=== PATIENT | female | born 1990 | race Caucasian/White ===

== ENCOUNTER 2020-07-28 08:30 | Inpatient (IN) ==
[2020-07-28] MEDS ORDERED: PENICILLIN G POTASSIUM 6 MU in DEXTROSE 5% 250 ML IV STA (09:52)
[2020-07-28] MEDS ORDERED: OXYTOCIN 30 UNITS/500 ML BAG IV PRN (09:52)
--- NOTE | 2020-07-28 10:09 | Progress Note ---
Date of Service July 28, 2020 Assessment & Plan Admission and Anticipated Discharge Date Admission Date: July 28, 2020 Subjective Induction for GDMA2 on insulin reviewed PNC with pt FHR; CAT1 VE; Ft/thick/post Bedside sono; VT discussed and reviewed indcution with pt and spouse Cytotec PO to start Results & Data ([facility]) Vital Signs (Past 12 Hours) Vital Signs Pulse BP 07/28/20 09:55 93 H 117/68
[2020-07-28 10:25] LABS: Hematocrit (blood only) 35.5 % (37-47); Hemoglobin 12.3 g/dL (12.0-16.0); Mean Corpuscular Hemoglobin 29.9 pg (25-34); Mean Corpuscular Hgb Conc 34.6 g/dL (32-36); Mean Corpuscular Volume 86.4 fL (80-100); Platelet Count 198 K/uL (130-400); RDW Coefficient of Variation 13.4 % (11.5-14.5); Red Blood Count 4.11 M/uL (4.2-5.4); White Blood Count 11.07 K/uL (4.8-10.8)
[2020-07-28] MEDS ORDERED: PHARMACY GLYCEMIC MGMT CONSULT SCH (10:29)
[2020-07-28] MEDS ORDERED: D5W AND LACTATED RINGERS 1,000 ML IV SCH (10:30)
[2020-07-28] MEDS: LACTATED RINGER'S 1,000 ML IV SCH (10:30)
[2020-07-28 10:49] LABS: Alanine Aminotransferase 16 U/L (12-78); Albumin Level 2.6 gm/dl (3.4-5.0); BUN Creatinine Ratio 11.6 (10-20); Blood Urea Nitrogen 7 mg/dl (7-18); Calcium 9.1 mg/dl (8.5-10.1); Carbon Dioxide 19 mmol/L (21-32); Chloride 111 mmol/L (98-107); Est GFR (Non-African American) 125.1; Glucose 129 mg/dl (70-99); Potassium 3.6 mmol/L (3.5-5.1); Sodium 139 mmol/L (136-145)
[2020-07-28 10:52] LABS: Albumin Globulin Ratio 0.7 (0.9-2); Alkaline Phosphatase 143 U/L (45-117); Aspartate Aminotransferase 12 U/L (15-37); Bilirubin,Total 0.2 mg/dl (0.2-1); Globulin 3.9 gm/dl (2.5-4.0); Total Protein 6.5 gm/dl (6.4-8.2)
[2020-07-28] MEDS ORDERED: GLUCOSE 40% GEL 15 GM TUBE PO PRN (11:00)
[2020-07-28] MEDS ORDERED: GLUCOSE 10 TABS/TUBE PO PRN (11:00)
[2020-07-28] MEDS ORDERED: GLUCAGON FOR INJ 1 MG VIAL SQ PRN (11:00)
[2020-07-28] MEDS ORDERED: DEXTROSE 50% 50 ML SYRINGE IV PRN (11:00)
[2020-07-28] MEDS ORDERED: CARBOHYDRATES FOR HYPOGLYCEMIA PO PRN (11:00)
--- NOTE | 2020-07-28 11:11 | Pharmacy Report ---
Pharmacy Glycemic Short Note 2 - Date of Service July 28, 2020 - Glycemic Short BSG Results (Last 24 hours): 07/28/20 10:13 Glucose 129 H OUTPATIENT ANTIDIABETIC REGIMEN: * NPH 10 units HS ASSESSMENT: * 30 year old 39 weeks admitted for induction, gestational DM on insulin during * Patient had pancakes for breakfast, blood sugar 1 hour after 129mg/dl, Suzanna RN instructed to treat per protocol and then Q4H * Will also place NPH on scale at HS * Patient on clear liquid diet and PO hydration at this time PLAN FOR INPATIENT GLYCEMIC CONTROL: * Basal insulin * NPH 10 units SQ HS for BSG > 120mg/dl * Bolus insulin * NovoLog per scale Q4hrs * Goal Range: Low 70 mg/dL - High 120 mg/dL * BSG 120 or less - 0 units * BSG 121-140 - 1 unit * BSG 141-160 - 2 units * BSG 161-180 - 3 units * BSG 181-200 - 4 units * BSG > 200 - 4 units and call pharmacist
[2020-07-28] MEDS: INSULIN ASPART 100 UNITS/ML 3 ML PEN SC SCH ×3 (11:20→19:09)
[2020-07-28] MEDS: miSOPROStoL 50 MCG TAB PO SCH ×4 (11:28→23:05)
[2020-07-28] MEDS ORDERED: DINOPROSTONE 10 MG INSERT PV ONE (20:50)
[2020-07-28] MEDS: NovoLIN-N (NPH) PER UNIT CHARGE SQ SCH (21:30)
--- NOTE | 2020-07-28 21:36 | Progress Note ---
Date of Service July 28, 2020 Assessment & Plan Admission and Anticipated Discharge Date Admission Date: July 28, 2020 Subjective Pt doing well NST CAT1 ctx 4 mins , Mild intensity VE; ft/50/-3 BS reviewed Cervidil placed in vagina Results & Data ([facility]) Vital Signs (Past 12 Hours) Vital Signs Temp Pulse Resp BP Pulse Ox 07/28/20 19:23 36.6 C 18 07/28/20 18:49 36.8 C 70 18 122/68 07/28/20 14:51 36.4 C L 71 18 118/62 07/28/20 14:50 71 118/62 07/28/20 12:29 36.7 C 77 18 116/60 07/28/20 11:41 82 95 07/28/20 11:36 80 95 07/28/20 11:31 91 H 96 07/28/20 11:26 76 96 07/28/20 11:21 82 96 07/28/20 11:16 80 96 07/28/20 11:11 86 96 07/28/20 11:06 80 95 07/28/20 11:01 81 95 07/28/20 10:56 86 95 07/28/20 10:51 91 H 94 07/28/20 10:46 97 H 95 07/28/20 10:44 36.7 C 96 H 18 95 07/28/20 10:41 96 H 95 07/28/20 10:32 107 H 119/77 07/28/20 10:31 219 H 94 07/28/20 10:26 113 H 93 07/28/20 10:24 117 H 94 07/28/20 10:21 116 H 95 07/28/20 10:17 105 H 92 07/28/20 10:16 102 H 95 07/28/20 10:12 106 H 127/79 07/28/20 10:11 183 H 95 07/28/20 09:55 93 H 117/68
[2020-07-29] MEDS: INSULIN ASPART 100 UNITS/ML 3 ML PEN SC SCH ×5 (03:11→18:10)
[2020-07-29] MEDS: miSOPROStoL 50 MCG TAB PO SCH ×6 (03:17→21:45)
--- NOTE | 2020-07-29 11:12 | Obstetrical Progress Note ---
Date of Service July 29, 2020 Assessment & Plan Admission and Anticipated Discharge Date Admission Date: July 28, 2020 Physical Exam Genitourinary: Manual OB Exam: + cervical dilation fingertip, + cervical effacement 50% and + station high OB Exam Monitor Tracing: + external FHT monitor used, + external uterine monitor used, + category I and + normal FHT variability Will start Cytotec 50 mcg for further ripening of cervix Results & Data ([facility]) Vital Signs (Past 12 Hours) Vital Signs Temp Pulse Resp BP 07/29/20 11:08 79 124/75 07/29/20 07:10 36.8 C 20 07/29/20 06:57 77 127/57 L 07/29/20 03:11 36.7 C 18
[2020-07-29] MEDS ORDERED: Nursing to Pharmacy Communication SCH (11:45)
[2020-07-29] MEDS: NovoLIN-N (NPH) PER UNIT CHARGE SQ SCH (21:12)
[2020-07-30] MEDS: INSULIN ASPART 100 UNITS/ML 3 ML PEN SC SCH ×4 (00:02→18:35)
[2020-07-30] MEDS: miSOPROStoL 50 MCG TAB PO SCH ×5 (01:35→17:58)
[2020-07-30] MEDS ORDERED: OXYTOCIN 30 UNITS/500 ML BAG IV PRN (09:01)
[2020-07-30] MEDS ORDERED: BUTORPHANOL TARTRATE 1 MG/ML VIAL IV PRN (09:01)
[2020-07-30] MEDS ORDERED: PENICILLIN G POTASSIUM 6 MU in DEXTROSE 5% 250 ML IV STA (09:09)
--- NOTE | 2020-07-30 09:15 | History & Physical Report ---
Date of Service July 30, 2020 Assessment & Plan (1) Gestational diabetes requiring insulin: 30-year-old G1, P0 at 39 weeks and 2 days of gestation, with GDMA2, on insulin, induction of labor since July 28, cervical ripening with Cervidil and multiple dose of Cytotec. Vital signs stable afebrile. heart rate reassuring. Cervix is still not favorable and presenting part is high, estimated weight is 4099 g. Discussed option with continuing with cervical ripening with Avalos bulb and Pi tocin and she agreed. The HPI. Avalos bulb is placed with no difficulty. GBS is positive, start statin now Stadol for pain and an epidural for pain when patient desires. All questions were answered. (2) Elective induction of labor planned: Admission and Anticipated Discharge Date Admission Date: July 28, 2020 History of Present Illness Primary Care Provider: Goip Medina MD Patient is a 30-year-old G1, P0 at 39 weeks and 2 days of gestation who was admitted on July 28, 2020 for induction of labor at term due to history of gestational diabetes, on insulin. She received 2 doses of oral Cytotec and then intravaginal Cervidil on the day of admission. Cervidil was removed yesterday morning and continued with oral Cytotec. She denies contractions, leakage of fluid or vaginal bleeding. She was having contractions last night but and then they stopped and she was able to sleep. She has been feeling good movements. Her has been complicated by 1) GDMA2, on insulin for the last 2 weeks of . Finger stick glucose levels have been within normal limits. Estimated weight was 3700 g on July 20 percentile. Today we performed a bedside ultrasound and it is 4099 g. Discussed the limitation of ultrasound which can be up to 10% false rate. Discussed the risk of shoulder dystocia being higher with larger babies and gestational diabetes. Discussed the risk to the infant with possible neck injury, nerve injury hypoxia, asphyxia. Discussed ACOG recommendations of trial of labor if estimated weight is less than 4500 g. Patient understands all and likes to proceed with trial of labor and vaginal . 2) Obesity 3) GBS+ Allergies Allergy/AdvReac Type Severity Reaction Status Date / Time codeine Allergy Intermediate RASH Verified 07/28/20 12:44 Home Medications Medication Instructions Recorded Confirmed Type Gummy 2 tab PO QAM 06/24/19 07/28/20 History ferrous sulfate 325 mg PO DAILY 05/29/20 07/28/20 History Patient History Medical History GERD (gastroesophageal reflux disease) Obesity Spontaneous reason for visit Surgical History History of colonoscopy History of esophagogastroduodenoscopy (EGD) History of tooth extraction wisdom Social History Smoking Status: Never smoker Second Hand Exposure: No; Do You Dip or Chew Tobacco: No; Tobacco Cessation Education Requested by Patient: No Hx Alcohol Use: No Hx Substance Use: No Preferred Language: Japanese Communication Ability: Effective Transfer Knitter Required: No Beliefs That Will Affect Care: None marital status: Current Living Situation: Spouse Other Information That Helps Us Care for You: No Feels Safe at Home: Yes Safety Concerns: Feels Safe At This Time 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 Review of Systems All systems reviewed & are unremarkable except as noted in HPI & below Physical Exam Gastrointestinal (Abdomen): normal bowel sounds, soft, nontender, no hepatosplenomegaly (Gravid, Nikunj 8 to 9 pounds.) Genitourinary: normal external appearance OB Exam Abdomen: + vertex Manual OB Exam: + cervical dilation 2 cm, + cervical effacement 50% and + station high (Ballotable) OB Exam Monitor Tracing: + external uterine monitor used and + category I Sterile speculum exam is placed in the vagina, cervix is visualized and cleaned with Betadine. Avalos bulb was placed through the cervix and inflated with 35 mL of sterile water and applied to upper thigh with gentle traction. Patient tolerated procedure well. Results & Data ([facility]) Vital Signs (Past 12 Hours) Vital Signs Temp Pulse Resp BP 07/30/20 07:08 36.9 C 16 07/30/20 07:06 75 114/69 07/30/20 04:07 36.7 C 16 07/30/20 04:04 75 108/62 05/07/21 22:59 36.5 C 78 18 117/75 Laboratory Results Lab Results 07/28/20 07/28/20 07/28/20 Range/Units 10:06 10:06 10:13 WBC (4.8-10.8) K/uL RBC (4.2-5.4) M/uL Hgb (12.0-16.0) g/dL Hct (37-47) % MCV (80-100) fL MCH (25-34) pg MCHC (32-36) g/dL RDW Std Deviation (36.4-46.3) fL RDW Coeff of Tatiana (11.5-14.5) % Plt Count (130-400) K/uL MPV (7.4-10.4) fL Sodium 139 (136-145) mmol/L Potassium 3.6 (3.5-5.1) mmol/L Chloride 111 H (98-107) mmol/L Carbon Dioxide 19 L (21-32) mmol/L Anion Gap 9.0 (3-11) BUN 7 (7-18) mg/dl Creatinine 0.56 L (0.6-1.2) mg/dl Est Cr Clr Drug Dosing Not Reportable Est GFR ( Amer) 145.0 Est GFR (Non-Af Amer) 125.1 BUN/Creatinine Ratio 11.6 (10-20) Glucose 129 H (70-99) mg/dl Calcium 9.1 (8.5-10.1) mg/dl Total Bilirubin 0.2 (0.2-1) mg/dl AST 12 L (15-37) U/L ALT 16 (12-78) U/L Alkaline Phosphatase 143 H (45-117) U/L Total Protein 6.5 (6.4-8.2) gm/dl Albumin 2.6 L (3.4-5.0) gm/dl Globulin 3.9 (2.5-4.0) gm/dl Albumin/Globulin Ratio 0.7 L (0.9-2) COVID-19 Eval [facility] SARS-CoV-2, RNA, NAAT Cancelled 07/28/20 07/28/20 07/28/20 Range/Units 10:13 10:47 10:47 WBC 11.07 H (4.8-10.8) K/uL RBC 4.11 L (4.2-5.4) M/uL Hgb 12.3 (12.0-16.0) g/dL Hct 35.5 L (37-47) % MCV 86.4 (80-100) fL MCH 29.9 (25-34) pg MCHC 34.6 (32-36) g/dL RDW Std Deviation 42.0 (36.4-46.3) fL RDW Coeff of Tatiana 13.4 (11.5-14.5) % Plt Count 198 (130-400) K/uL MPV 11.0 H (7.4-10.4) fL Sodium (136-145) mmol/L Potassium (3.5-5.1) mmol/L Chloride (98-107) mmol/L Carbon Dioxide (21-32) mmol/L Anion Gap (3-11) BUN (7-18) mg/dl Creatinine (0.6-1.2) mg/dl Est Cr Clr Drug Dosing Est GFR ( Amer) Est GFR (Non-Af Amer) BUN/Creatinine Ratio (10-20) Glucose (70-99) mg/dl Calcium (8.5-10.1) mg/dl Total Bilirubin (0.2-1) mg/dl AST (15-37) U/L ALT (12-78) U/L Alkaline Phosphatase (45-117) U/L Total Protein (6.4-8.2) gm/dl Albumin (3.4-5.0) gm/dl Globulin (2.5-4.0) gm/dl Albumin/Globulin Ratio (0.9-2) COVID-19 Eval [facility] SARS-CoV-2, RNA, NAAT NEGATIVE
[2020-07-30] MEDS ORDERED: FLUCONAZOLE 50 MG TAB PO STA (09:21)
--- NOTE | 2020-07-30 09:21 | Pharmacy Report ---
Pharmacy Glycemic Short Note 2 - Date of Service July 30, 2020 - Glycemic Short OUTPATIENT ANTIDIABETIC REGIMEN: * NPH 10 units HS ASSESSMENT: 07/30: * BSGs have been well controlled since admission to hospital * Ranging 78-158 over the past 24 hours * Patient not eating much * Continues on Pen G for GBS+, Clear liquid diet ordered 07/28: * 30 year old 39 weeks admitted for induction, gestational DM on insulin during * Patient had pancakes for breakfast, blood sugar 1 hour after 129mg/dl, Suzanna RN instructed to treat per protocol and then Q4H * Will also place NPH on scale at HS * Patient on clear liquid diet and PO hydration at this time PLAN FOR INPATIENT GLYCEMIC CONTROL: * Basal insulin * NPH 10 units SQ HS for BSG > 120mg/dl (check BSG at 2100 in addition to 1800 and 0000 checks) * Bolus insulin * NovoLog per scale Q4hrs * Goal Range: Low 70 mg/dL - High 120 mg/dL * BSG 120 or less - 0 units * BSG 121-140 - 1 unit * BSG 141-160 - 2 units * BSG 161-180 - 3 units * BSG 181-200 - 4 units * BSG > 200 - 4 units and call pharmacist
[2020-07-30] MEDS: LACTATED RINGER'S 1,000 ML IV SCH ×2 (09:25→11:50)
[2020-07-30] MEDS ORDERED: fentaNYL citrate 100 MCG/2 ML VIAL ONE ×2 (09:31→19:23)
[2020-07-30] MEDS ORDERED: ONDANSETRON INJ 2 MG/ML 2 ML VIAL IV PRN ×3 (09:31→20:47)
[2020-07-30] MEDS ORDERED: NALOXONE HCL 1 MG in SODIUM CHLORIDE 0.9% 1000ML 1,000 ML IV PRN ×2 (09:31→20:19)
[2020-07-30] MEDS ORDERED: ePHEDrine sulfate 50 MG/ML AMP ONE ×2 (09:31→19:52)
[2020-07-30] MEDS ORDERED: ePHEDrine sulfate 50 MG/ML AMP IV PRN ×2 (09:31→20:19)
[2020-07-30] MEDS ORDERED: diphenhydrAMINE 50 MG/ML VIAL IV PRN ×2 (09:31→20:19)
[2020-07-30] MEDS ORDERED: SODIUM CHLORIDE 0.9% INJ 10 ML VIAL ONE (09:31)
[2020-07-30] MEDS ORDERED: BUPIVACAINE 0.25% 30 ML VIAL ONE (09:31)
[2020-07-30] MEDS ORDERED: NALOXONE HCL 0.4 MG/1 ML VIAL/CARP IV PRN ×2 (09:31→20:19)
[2020-07-30] MEDS ORDERED: fentaNYL 2MCG/ML ROPIVACAINE 1.25MG/ML 100 ML BAG EPI ONE (09:32)
--- NOTE | 2020-07-30 09:37 | Anesthesiology Consultation ---
Date of Service July 30, 2020 Assessment & Plan (1) Encounter for pre-operative examination: Chart Review Chart Review: Acceptable Risk for Labor Epidural Consults Requested none ASA ASA2 Proposed Anesthesia Anesthesia Type: Labor Epidural Risk / Benefits Reviewed With: PT / POA / Parent / Guardian, Accepts Plan and Informed Consent Obtained History Height/Weight Height: 5 ft 7 in Weight: 107.955 kg Allergies Allergy/AdvReac Type Severity Reaction Status Date / Time codeine Allergy Intermediate RASH Verified 07/28/20 12:44 Medications Home Medications Medication Instructions Recorded Confirmed Last Taken Gummy 2 tab PO QAM 06/24/19 07/28/20 07/20/20 07:30 ferrous sulfate 325 mg PO DAILY 05/29/20 07/28/20 07/20/20 07:30 Active Medications Generic Name Dose Route Start Last Admin Trade Name Freq PRN Reason Stop Dose Admin Lactated Ringer's 1,000 mls @ 125 mls/hr 07/28/20 16:49 07/28/20 11:15 Lr IV 08/27/20 16:48 0 mls/hr .Q8H ONOFRE Infusion Insulin Aspart 0 units 07/29/20 12:00 07/30/20 06:00 Insulin Aspart 100 Units/Ml 3 Ml Pen SC 08/28/20 11:59 Not Given Q6 ONOFRE Protocol Insulin Human NPH 0 units 07/28/20 21:00 07/29/20 21:12 Novolin-N (Nph) Per Unit Charge SQ 08/27/20 20:59 Not Given HS ONOFRE Protocol Misoprostol 50 mcg 07/29/20 12:00 07/30/20 06:05 Misoprostol 50 Mcg Tab PO 08/28/20 11:59 50 mcg Q4H ONOFRE Administration Past Medical History Medical History GERD (gastroesophageal reflux disease) Obesity Spontaneous reason for visit Exercise / Class Metabolic Activity II 4-5 Yardwork/Stairs/Walk up hill Past Surgical History Surgical History History of colonoscopy History of esophagogastroduodenoscopy (EGD) History of tooth extraction wisdom Past Anesthesia History No Hx of Anesthesia Complications and No Family Hx of Anesthesia Complications History of PONV No Hx of PONV and No Hx of Motion Sickness Social History Smoking Status: Never smoker Do You Dip or Chew Tobacco: No Hx Alcohol Use: No Alcohol type: wine alcohol intake frequency: holidays/special occasions only Hx Substance Use: No substance use type: does not use Physical Exam Vital Signs Last Vital Signs Temp 98.4 F 07/30/20 07:08 Pulse 75 07/30/20 07:06 Resp 16 07/30/20 07:08 BP 114/69 07/30/20 07:06 Pulse Ox 95 07/28/20 11:41 ENMT Mouth: no dentition abnormality Thyromental Distance: > or= 3.5 Finger Breadths Mallampati Class: II Neck normal visual inspection Respiratory normal respiratory effort Auscultation: lungs clear to auscultation bilaterally Cardiovascular Rate/Rhythm: regular rate and regular rhythm Testing Laboratory Results 07/28/20 10:13 07/28/20 10:13
[2020-07-30] MEDS ORDERED: LIDOCAINE HCL 1% MPF 5 ML VIAL ONE (09:49)
[2020-07-30] MEDS: fentaNYL 2MCG/ML ROPIVACAINE 1.25MG/ML 100 ML BAG EPI PRN ×2 (10:04→18:57)
[2020-07-30] MEDS: PENICILLIN G POTASSIUM 3 MU in DEXTROSE 5% 100 ML IV PRN ×2 (13:21→17:26)
--- NOTE | 2020-07-30 14:06 | Obstetrical Progress Note ---
Date of Service July 30, 2020 Assessment & Plan Admission and Anticipated Discharge Date Admission Date: July 28, 2020 Subjective Patient is reevaluated She feels comfortable, received epidural for pain Avalos bulb came out VSS Afebrile FHR categ I VE: 4/ 50%/ -2, tight bag, AROM'ed, clear fluid Bowlus ctxs 2 2-4 min, pitocin is at 12 miu/min Continue to monitor Results & Data ([facility]) Vital Signs (Past 12 Hours) Vital Signs Temp Pulse Resp BP Pulse Ox 07/30/20 14:01 64 124/78 07/30/20 13:58 69 97 07/30/20 13:53 67 97 07/30/20 13:48 81 98 07/30/20 13:46 57 L 128/74 07/30/20 13:43 56 L 97 07/30/20 13:38 60 98 07/30/20 13:33 56 L 98 07/30/20 13:29 58 L 104/65 07/30/20 13:28 57 L 98 07/30/20 13:23 59 L 97 07/30/20 13:18 51 L 97 07/30/20 13:16 56 L 107/59 L 07/30/20 13:13 53 L 97 07/30/20 13:08 53 L 96 07/30/20 13:03 53 L 97 07/30/20 12:59 54 L 108/65 07/30/20 12:58 55 L 98 07/30/20 12:53 53 L 96 07/30/20 12:50 64 92 07/30/20 12:48 52 L 97 07/30/20 12:45 51 L 111/67 07/30/20 12:43 55 L 98 07/30/20 12:38 55 L 99 07/30/20 12:33 65 98 07/30/20 12:31 60 112/67 07/30/20 12:28 64 99 07/30/20 12:23 62 98 07/30/20 12:18 58 L 98 07/30/20 12:16 57 L 111/73 07/30/20 12:13 75 97 07/30/20 12:08 64 96 07/30/20 12:03 74 97 07/30/20 12:00 59 L 111/62 07/30/20 11:58 65 98 07/30/20 11:53 68 97 07/30/20 11:48 59 L 95 07/30/20 11:44 62 110/69 07/30/20 11:43 60 97 07/30/20 11:38 62 96 07/30/20 11:33 66 97 07/30/20 11:30 62 113/65 07/30/20 11:28 63 97 07/30/20 11:23 69 96 07/30/20 11:18 72 97 07/30/20 11:14 67 111/69 07/30/20 11:13 60 97 07/30/20 11:08 65 97 07/30/20 11:03 65 97 07/30/20 11:00 36.6 C 61 18 111/69 07/30/20 10:58 76 97 07/30/20 10:53 63 98 07/30/20 10:48 65 98 07/30/20 10:46 73 116/73 07/30/20 10:43 70 97 07/30/20 10:38 67 97 07/30/20 10:33 65 98 07/30/20 10:29 65 105/59 L 07/30/20 10:28 63 97 07/30/20 10:23 72 110/65 97 07/30/20 10:18 76 109/61 98 07/30/20 10:13 75 104/57 L 95 07/30/20 10:08 77 106/57 L 96 07/30/20 10:06 73 109/60 07/30/20 10:04 77 115/67 07/30/20 10:03 78 97 07/30/20 10:02 83 113/62 07/30/20 10:00 85 117/74 07/30/20 09:58 82 111/72 97 07/30/20 09:53 92 H 97 07/30/20 09:48 92 H 97 07/30/20 09:43 78 97 07/30/20 09:38 80 98 07/30/20 07:08 36.9 C 16 07/30/20 07:06 75 114/69 07/30/20 04:07 36.7 C 16 07/30/20 04:04 75 108/62
--- NOTE | 2020-07-30 16:43 | Obstetrical Progress Note ---
Date of Service July 30, 2020 Assessment & Plan Admission and Anticipated Discharge Date Admission Date: July 28, 2020 Subjective Patient is reevaluated She is comfortable VE: 4/ 50%/ -3, engaged but high head FHR categ I occasional decels with some of contractions then back to categ I [place] ctxs q 1-3 min Received 2 doses of PCN IUPC is placed to titer pitocin better and monitor contractions Continue to monitor closely Results & Data ([facility]) Vital Signs (Past 12 Hours) Vital Signs Temp Pulse Resp BP Pulse Ox 07/30/20 16:38 73 97 07/30/20 16:33 77 97 07/30/20 16:29 71 122/74 07/30/20 16:28 72 96 07/30/20 16:23 75 97 07/30/20 16:18 73 97 07/30/20 16:16 77 116/67 07/30/20 16:13 65 96 07/30/20 16:08 66 96 07/30/20 16:03 94 H 95 07/30/20 16:01 61 126/74 07/30/20 15:58 56 L 95 07/30/20 15:55 57 L 94 07/30/20 15:53 59 L 94 07/30/20 15:50 59 L 94 07/30/20 15:48 59 L 95 07/30/20 15:45 60 126/69 07/30/20 15:43 60 95 07/30/20 15:38 63 96 07/30/20 15:33 63 96 07/30/20 15:30 64 129/73 07/30/20 15:28 69 96 07/30/20 15:23 66 96 07/30/20 15:18 70 97 07/30/20 15:15 77 145/67 H 07/30/20 15:13 77 97 07/30/20 15:08 66 97 07/30/20 15:03 71 96 07/30/20 15:01 77 124/80 07/30/20 14:58 102 H 97 07/30/20 14:53 55 L 95 07/30/20 14:48 64 95 07/30/20 14:46 63 121/77 07/30/20 14:43 56 L 96 07/30/20 14:38 59 L 96 07/30/20 14:33 89 97 07/30/20 14:29 68 120/80 07/30/20 14:28 62 97 07/30/20 14:23 64 97 07/30/20 14:18 65 96 07/30/20 14:14 75 122/77 07/30/20 14:13 66 97 07/30/20 14:08 77 98 07/30/20 14:03 69 98 07/30/20 14:01 64 124/78 07/30/20 14:00 37.0 C 16 07/30/20 13:58 69 97 07/30/20 13:53 67 97 07/30/20 13:48 81 98 07/30/20 13:46 57 L 128/74 07/30/20 13:43 56 L 97 07/30/20 13:38 60 98 07/30/20 13:33 56 L 98 07/30/20 13:29 58 L 104/65 07/30/20 13:28 57 L 98 07/30/20 13:23 59 L 97 07/30/20 13:18 51 L 97 07/30/20 13:16 56 L 107/59 L 07/30/20 13:13 53 L 97 07/30/20 13:08 53 L 96 07/30/20 13:03 53 L 97 07/30/20 12:59 54 L 108/65 07/30/20 12:58 55 L 98 07/30/20 12:53 53 L 96 07/30/20 12:50 64 92 07/30/20 12:48 52 L 97 07/30/20 12:45 51 L 111/67 07/30/20 12:43 55 L 98 07/30/20 12:38 55 L 99 07/30/20 12:33 65 98 07/30/20 12:31 60 112/67 07/30/20 12:28 64 99 07/30/20 12:23 62 98 07/30/20 12:18 58 L 98 07/30/20 12:16 57 L 111/73 07/30/20 12:13 75 97 07/30/20 12:08 64 96 07/30/20 12:03 74 97 07/30/20 12:00 59 L 111/62 07/30/20 11:58 65 98 07/30/20 11:53 68 97 07/30/20 11:48 59 L 95 07/30/20 11:44 62 110/69 07/30/20 11:43 60 97 07/30/20 11:38 62 96 07/30/20 11:33 66 97 07/30/20 11:30 62 113/65 07/30/20 11:28 63 97 07/30/20 11:23 69 96 07/30/20 11:18 72 97 07/30/20 11:14 67 111/69 07/30/20 11:13 60 97 07/30/20 11:08 65 97 07/30/20 11:03 65 97 07/30/20 11:00 36.6 C 61 18 111/69 07/30/20 10:58 76 97 07/30/20 10:53 63 98 07/30/20 10:48 65 98 07/30/20 10:46 73 116/73 07/30/20 10:43 70 97 07/30/20 10:38 67 97 07/30/20 10:33 65 98 07/30/20 10:29 65 105/59 L 07/30/20 10:28 63 97 07/30/20 10:23 72 110/65 97 07/30/20 10:18 76 109/61 98 07/30/20 10:13 75 104/57 L 95 07/30/20 10:08 77 106/57 L 96 07/30/20 10:06 73 109/60 07/30/20 10:04 77 115/67 07/30/20 10:03 78 97 07/30/20 10:02 83 113/62 07/30/20 10:00 85 117/74 07/30/20 09:58 82 111/72 97 07/30/20 09:53 92 H 97 07/30/20 09:48 92 H 97 07/30/20 09:43 78 97 07/30/20 09:38 80 98 07/30/20 07:08 36.9 C 16 07/30/20 07:06 75 114/69
[2020-07-30] MEDS ORDERED: NURSING L&D Epidural Breakthrough Pain Update ONE (18:01)
[2020-07-30] MEDS ORDERED: CITRIC ACID/SODIUM CITRATE 15 ML UDC PO SCH (19:00)
[2020-07-30] MEDS ORDERED: AZITHROMYCIN 500 MG in DEXTROSE 5% 250 ML IV SCH (19:00)
[2020-07-30] MEDS ORDERED: CEFAZOLIN 3000 MG IV SCH (19:00)
[2020-07-30] MEDS ORDERED: LACTATED RINGER'S 1,000 ML IV SCH ×3 (19:00→21:00)
--- NOTE | 2020-07-30 19:07 | Obstetrical Progress Note ---
Date of Service July 30, 2020 Assessment & Plan Admission and Anticipated Discharge Date Admission Date: July 28, 2020 Subjective Patient is reevaluated. She started to feel contractions and pressure in lower abdomen. Vaginal exam is repeated cervix is 5 cm dilated, 70% effaced, head at -2 station there is a minimal change in cervix compared to last exam. Still heart rate category 1 Uterine contractions have been adequate, monitored by IUPC, between 200-20 MVU/ 10 min. Discussed with the patient above findings and offer her expectant management with continue induction of labor with Pitocin, position change. Patient is overwhelmed and does not want to continue with induction anymore she desires primary . Discussed with her that is a major surgery with risks of bleeding, infection, injury to surrounding organs like bowels bladder and ureters. Risk of blood clots in legs lungs, scarring and adhesion from surgery. Understands all and signed an informed consent. All questions were answered and all order team is called and we will proceed with primary . Results & Data ([facility]) Vital Signs (Past 12 Hours) Vital Signs Temp Pulse Resp BP Pulse Ox 07/30/20 19:00 75 135/74 07/30/20 18:58 79 97 07/30/20 18:53 93 H 96 07/30/20 18:48 94 H 97 07/30/20 18:45 85 137/79 07/30/20 18:43 88 97 07/30/20 18:38 86 97 07/30/20 18:33 113 H 98 07/30/20 18:31 81 136/84 07/30/20 18:28 72 97 07/30/20 18:23 78 96 07/30/20 18:21 80 128/75 07/30/20 18:18 73 97 07/30/20 18:13 92 H 95 07/30/20 18:08 90 95 07/30/20 18:03 87 95 07/30/20 18:02 75 148/87 H 07/30/20 17:58 70 96 07/30/20 17:53 73 98 07/30/20 17:48 75 96 07/30/20 17:46 65 131/61 07/30/20 17:43 66 96 07/30/20 17:38 72 96 07/30/20 17:33 63 96 07/30/20 17:30 65 123/69 07/30/20 17:28 71 96 07/30/20 17:23 75 97 07/30/20 17:18 72 96 07/30/20 17:16 72 125/73 07/30/20 17:13 70 96 07/30/20 17:08 71 96 07/30/20 17:03 68 96 07/30/20 16:59 65 119/71 07/30/20 16:58 71 96 07/30/20 16:53 64 96 07/30/20 16:48 67 96 07/30/20 16:44 71 116/72 07/30/20 16:43 68 96 07/30/20 16:38 73 97 07/30/20 16:33 77 97 07/30/20 16:29 71 122/74 07/30/20 16:28 72 96 07/30/20 16:23 75 97 07/30/20 16:18 73 97 07/30/20 16:16 77 116/67 07/30/20 16:13 65 96 07/30/20 16:08 66 96 07/30/20 16:03 94 H 95 07/30/20 16:01 36.9 C 61 16 126/74 07/30/20 15:58 56 L 95 07/30/20 15:55 57 L 94 07/30/20 15:53 59 L 94 07/30/20 15:50 59 L 94 07/30/20 15:48 59 L 95 07/30/20 15:45 60 126/69 07/30/20 15:43 60 95 07/30/20 15:38 63 96 07/30/20 15:33 63 96 07/30/20 15:30 64 129/73 07/30/20 15:28 69 96 07/30/20 15:23 66 96 07/30/20 15:18 70 97 07/30/20 15:15 77 145/67 H 07/30/20 15:13 77 97 07/30/20 15:08 66 97 07/30/20 15:03 71 96 07/30/20 15:01 77 124/80 07/30/20 14:58 102 H 97 07/30/20 14:53 55 L 95 07/30/20 14:48 64 95 07/30/20 14:46 63 121/77 05/08/21 14:43 56 L 96 07/30/20 14:38 59 L 96 07/30/20 14:33 89 97 07/30/20 14:29 68 120/80 07/30/20 14:28 62 97 07/30/20 14:23 64 97 07/30/20 14:18 65 96 07/30/20 14:14 75 122/77 07/30/20 14:13 66 97 07/30/20 14:08 77 98 07/30/20 14:03 69 98 07/30/20 14:01 64 124/78 07/30/20 14:00 37.0 C 16 07/30/20 13:58 69 97 07/30/20 13:53 67 97 07/30/20 13:48 81 98 07/30/20 13:46 57 L 128/74 07/30/20 13:43 56 L 97 07/30/20 13:38 60 98 07/30/20 13:33 56 L 98 07/30/20 13:29 58 L 104/65 07/30/20 13:28 57 L 98 07/30/20 13:23 59 L 97 07/30/20 13:18 51 L 97 07/30/20 13:16 56 L 107/59 L 07/30/20 13:13 53 L 97 07/30/20 13:08 53 L 96 07/30/20 13:03 53 L 97 07/30/20 12:59 54 L 108/65 07/30/20 12:58 55 L 98 07/30/20 12:53 53 L 96 07/30/20 12:50 64 92 07/30/20 12:48 52 L 97 07/30/20 12:45 51 L 111/67 07/30/20 12:43 55 L 98 07/30/20 12:38 55 L 99 07/30/20 12:33 65 98 07/30/20 12:31 60 112/67 07/30/20 12:28 64 99 07/30/20 12:23 62 98 07/30/20 12:18 58 L 98 07/30/20 12:16 57 L 111/73 07/30/20 12:13 75 97 07/30/20 12:08 64 96 07/30/20 12:03 74 97 07/30/20 12:00 59 L 111/62 07/30/20 11:58 65 98 07/30/20 11:53 68 97 07/30/20 11:48 59 L 95 07/30/20 11:44 62 110/69 07/30/20 11:43 60 97 07/30/20 11:38 62 96 07/30/20 11:33 66 97 07/30/20 11:30 62 113/65 07/30/20 11:28 63 97 07/30/20 11:23 69 96 07/30/20 11:18 72 97 07/30/20 11:14 67 111/69 07/30/20 11:13 60 97 07/30/20 11:08 65 97 07/30/20 11:03 65 97 07/30/20 11:00 36.6 C 61 18 111/69 07/30/20 10:58 76 97 07/30/20 10:53 63 98 07/30/20 10:48 65 98 07/30/20 10:46 73 116/73 07/30/20 10:43 70 97 07/30/20 10:38 67 97 07/30/20 10:33 65 98 07/30/20 10:29 65 105/59 L 07/30/20 10:28 63 97 07/30/20 10:23 72 110/65 97 07/30/20 10:18 76 109/61 98 07/30/20 10:13 75 104/57 L 95 07/30/20 10:08 77 106/57 L 96 07/30/20 10:06 73 109/60 07/30/20 10:04 77 115/67 07/30/20 10:03 78 97 07/30/20 10:02 83 113/62 07/30/20 10:00 85 117/74 07/30/20 09:58 82 111/72 97 07/30/20 09:53 92 H 97 07/30/20 09:48 92 H 97 07/30/20 09:43 78 97 07/30/20 09:38 80 98 07/30/20 07:08 36.9 C 16 07/30/20 07:06 75 114/69
[2020-07-30] MEDS ORDERED: LIDOCAINE/EPINEPHRINE 2% 1:200,000 20 ML SDV ONE (19:23)
[2020-07-30] MEDS ORDERED: MoRPHine SULFATE PF 1 MG/ML 10 ML AMP/VIAL ONE (19:23)
[2020-07-30] MEDS ORDERED: OXYTOCIN 10 UNITS/ML VIAL ONE (19:23)
[2020-07-30 19:39] LABS: Basophils # (auto) 0.01 K/uL (0-0.2); Basophils % (auto) 0.1 %; Eosinophils # (auto) 0.03 K/uL (0-0.5); Eosinophils % (auto) 0.2 %; Hematocrit (blood only) 37.3 % (37-47); Hemoglobin 12.3 g/dL (12.0-16.0); Immature Granulocytes # (auto) 0.08 K/uL (0.00-0.02); Immature Granulocytes % (auto) 0.6 %; Lymphocytes % (auto) 12.9 %; Mean Corpuscular Hemoglobin 29.7 pg (25-34); Mean Corpuscular Volume 90.1 fL (80-100); Mean Platelet Volume 11.2 fL (7.4-10.4); Monocytes # (auto) 0.71 K/uL (0.11-0.59); Monocytes % (auto) 5.1 %; Neutrophils # (auto) 11.36 K/uL (1.4-6.5); Neutrophils % (auto) 81.1 %; Platelet Count 193 K/uL (130-400); RDW Coefficient of Variation 13.5 % (11.5-14.5); RDW Standard Deviation 44.8 fL (36.4-46.3); Red Blood Count 4.14 M/uL (4.2-5.4); White Blood Count 13.99 K/uL (4.8-10.8)
[2020-07-30] MEDS ORDERED: PHENYLEPHRINE 100MCG/ML 5ML SYR ONE (19:49)
[2020-07-30] MEDS ORDERED: ONDANSETRON INJ 2 MG/ML 2 ML VIAL ONE (20:08)
[2020-07-30] MEDS ORDERED: METHYLERGONOVINE MALEATE 0.2 MG/ML AMP ONE (20:09)
[2020-07-30] MEDS ORDERED: MoRPHine SULFATE 2 MG/ML CARP IV PRN (20:19)
[2020-07-30] MEDS ORDERED: MoRPHine SULFATE PF 1 MG/ML 10 ML AMP/VIAL EPI ONE (20:19)
[2020-07-30] MEDS ORDERED: NALOXONE HCL 0.08 MG in SYRINGE 1.8 ML IV PRN (20:19)
[2020-07-30] MEDS ORDERED: PROMETHAZINE HCL 25 MG in SODIUM CHLORIDE 0.9% 50 ML IV PRN (20:19)
[2020-07-30] MEDS ORDERED: LACTATED RINGER'S 500 ML IV PRN (20:19)
[2020-07-30] MEDS ORDERED: SODIUM CHLORIDE 0.9% 1000ML 1,000 ML IV SCH (20:30)
[2020-07-30] MEDS ORDERED: NO NARCOTICS OR SEDATIVES SCH (20:30)
[2020-07-30] MEDS ORDERED: DC INTRASPINAL MORPHINE SCH (20:30)
[2020-07-30] MEDS ORDERED: DIPHTHERIA/TETANUS/PERTUSSIS 0.5 ML SYR/VIAL IM ONE (20:47)
[2020-07-30] MEDS ORDERED: BENZOCAINE 20% AER SPR 82.5 GM CAN EXT PRN (20:47)
[2020-07-30] MEDS ORDERED: SUPERCREAM 0.870% 15 GM JAR EXT PRN (20:47)
[2020-07-30] MEDS ORDERED: HYDROCORTISONE ACETATE 25 MG SUPP PR PRN (20:47)
[2020-07-30] MEDS ORDERED: SENNA 8.6 MG TAB PO PRN (20:47)
[2020-07-30] MEDS ORDERED: ACETAMINOPHEN 500 MG TAB PO PRN (20:47)
[2020-07-30] MEDS ORDERED: MEASLES, MUMPS & RUBELLA VIRUS VIAL SQ ONE (20:47)
[2020-07-30] MEDS ORDERED: MAGNESIUM HYDROXIDE SUSP 30 ML UDC PO PRN (20:47)
--- NOTE | 2020-07-30 20:47 | Post Operative Brief Note ---
Immediate Post Op Note v1 Date of Surgery July 30, 2020 Pre & Post Diagnosis Operation Date: 07/30/20 19:30 Pre-Op Diagnosis: Primary for failure to progress Post-Op Diagnosis: Same I identified the patient and participated in the time-out.: Yes Procedure Operation Date: 07/30/20 19:30 Actual Procedures p Section in LD for failure to progress, [facility] at 2003 - Shavon Carter MD Surgeon Shavon Khan MD Mixing Pan Tender Helen Krause RN Estimated Blood Loss 800 Findings Consistent with Post-Op Diagnosis Drains Levine Catheter (levine cath placed prior to pt coming to OR, draining clear yellow urine. To be monitored during procedure by anasthesia ) Anesthesia Type Labor Epidural Complications none Disposition Accompanied Patient To Recovery: Yes Disposition: L&D
--- NOTE | 2020-07-30 21:05 | Anesthesiology Progress Note ---
Date of Service July 30, 2020 Anesthesia Post Procedure Vital Signs Vital Signs: Temp Pulse Resp BP Pulse Ox 07/30/20 21:03 92 H 104/52 L 07/30/20 20:52 82 130/57 L 07/30/20 19:29 77 117/77 07/30/20 19:28 84 97 07/30/20 19:23 73 96 07/30/20 19:18 76 96 07/30/20 19:15 86 119/71 07/30/20 19:13 94 H 96 07/30/20 19:08 91 H 96 07/30/20 19:03 77 96 07/30/20 19:00 75 135/74 07/30/20 18:58 79 97 07/30/20 18:53 93 H 96 07/30/20 18:48 94 H 97 07/30/20 18:45 85 137/79 07/30/20 18:43 88 97 07/30/20 18:38 86 97 07/30/20 18:33 113 H 98 07/30/20 18:31 81 136/84 07/30/20 18:28 72 97 07/30/20 18:23 78 96 07/30/20 18:21 80 128/75 07/30/20 18:18 73 97 07/30/20 18:13 92 H 95 07/30/20 18:08 90 95 07/30/20 18:03 87 95 07/30/20 18:02 75 148/87 H 07/30/20 17:58 70 96 07/30/20 17:53 73 98 07/30/20 17:48 75 96 07/30/20 17:46 65 131/61 07/30/20 17:43 66 96 07/30/20 17:38 72 96 07/30/20 17:33 63 96 07/30/20 17:30 65 123/69 07/30/20 17:28 71 96 07/30/20 17:23 75 97 07/30/20 17:18 72 96 07/30/20 17:16 72 125/73 07/30/20 17:13 70 96 07/30/20 17:08 71 96 07/30/20 17:03 68 96 07/30/20 16:59 65 119/71 07/30/20 16:58 71 96 07/30/20 16:53 64 96 05/08/21 16:48 67 96 07/30/20 16:44 71 116/72 07/30/20 16:43 68 96 07/30/20 16:38 73 97 07/30/20 16:33 77 97 07/30/20 16:29 71 122/74 07/30/20 16:28 72 96 07/30/20 16:23 75 97 07/30/20 16:18 73 97 07/30/20 16:16 77 116/67 07/30/20 16:13 65 96 07/30/20 16:08 66 96 07/30/20 16:03 94 H 95 07/30/20 16:01 36.9 C 61 16 126/74 07/30/20 15:58 56 L 95 07/30/20 15:55 57 L 94 07/30/20 15:53 59 L 94 07/30/20 15:50 59 L 94 07/30/20 15:48 59 L 95 07/30/20 15:45 60 126/69 07/30/20 15:43 60 95 07/30/20 15:38 63 96 07/30/20 15:33 63 96 07/30/20 15:30 64 129/73 07/30/20 15:28 69 96 07/30/20 15:23 66 96 07/30/20 15:18 70 97 07/30/20 15:15 77 145/67 H 07/30/20 15:13 77 97 07/30/20 15:08 66 97 07/30/20 15:03 71 96 07/30/20 15:01 77 124/80 07/30/20 14:58 102 H 97 07/30/20 14:53 55 L 95 07/30/20 14:48 64 95 07/30/20 14:46 63 121/77 07/30/20 14:43 56 L 96 07/30/20 14:38 59 L 96 07/30/20 14:33 89 97 07/30/20 14:29 68 120/80 07/30/20 14:28 62 97 07/30/20 14:23 64 97 07/30/20 14:18 65 96 07/30/20 14:14 75 122/77 07/30/20 14:13 66 97 07/30/20 14:08 77 98 05/08/21 14:03 69 98 07/30/20 14:01 64 124/78 07/30/20 14:00 37.0 C 16 07/30/20 13:58 69 97 07/30/20 13:53 67 97 07/30/20 13:48 81 98 07/30/20 13:46 57 L 128/74 07/30/20 13:43 56 L 97 07/30/20 13:38 60 98 07/30/20 13:33 56 L 98 07/30/20 13:29 58 L 104/65 07/30/20 13:28 57 L 98 07/30/20 13:23 59 L 97 07/30/20 13:18 51 L 97 07/30/20 13:16 56 L 107/59 L 07/30/20 13:13 53 L 97 07/30/20 13:08 53 L 96 07/30/20 13:03 53 L 97 07/30/20 12:59 54 L 108/65 07/30/20 12:58 55 L 98 07/30/20 12:53 53 L 96 07/30/20 12:50 64 92 07/30/20 12:48 52 L 97 07/30/20 12:45 51 L 111/67 07/30/20 12:43 55 L 98 07/30/20 12:38 55 L 99 07/30/20 12:33 65 98 07/30/20 12:31 60 112/67 07/30/20 12:28 64 99 07/30/20 12:23 62 98 07/30/20 12:18 58 L 98 07/30/20 12:16 57 L 111/73 07/30/20 12:13 75 97 07/30/20 12:08 64 96 07/30/20 12:03 74 97 07/30/20 12:00 59 L 111/62 07/30/20 11:58 65 98 07/30/20 11:53 68 97 07/30/20 11:48 59 L 95 07/30/20 11:44 62 110/69 07/30/20 11:43 60 97 07/30/20 11:38 62 96 07/30/20 11:33 66 97 07/30/20 11:30 62 113/65 07/30/20 11:28 63 97 07/30/20 11:23 69 96 07/30/20 11:18 72 97 07/30/20 11:14 67 111/69 07/30/20 11:13 60 97 07/30/20 11:08 65 97 07/30/20 11:03 65 97 07/30/20 11:00 36.6 C 61 18 111/69 07/30/20 10:58 76 97 07/30/20 10:53 63 98 07/30/20 10:48 65 98 07/30/20 10:46 73 116/73 07/30/20 10:43 70 97 07/30/20 10:38 67 97 07/30/20 10:33 65 98 07/30/20 10:29 65 105/59 L 07/30/20 10:28 63 97 07/30/20 10:23 72 110/65 97 07/30/20 10:18 76 109/61 98 07/30/20 10:13 75 104/57 L 95 07/30/20 10:08 77 106/57 L 96 07/30/20 10:06 73 109/60 07/30/20 10:04 77 115/67 07/30/20 10:03 78 97 07/30/20 10:02 83 113/62 07/30/20 10:00 85 117/74 07/30/20 09:58 82 111/72 97 07/30/20 09:53 92 H 97 07/30/20 09:48 92 H 97 07/30/20 09:43 78 97 07/30/20 09:38 80 98 07/30/20 07:08 36.9 C 16 07/30/20 07:06 75 114/69 07/30/20 04:07 36.7 C 16 07/30/20 04:04 75 108/62 07/29/20 22:59 36.5 C 78 18 117/75 Pain Intensity Bilateral Abdomen: Pain Intensity: 3 Transfer of Care Handoff Completed per policy Notes Mental Status: alert / awake / arousable and participated in evaluation Patient Amnestic to Procedure: Yes Nausea / Vomiting: adequately controlled Pain: adequately controlled Airway Patency, RR, SpO2: stable & adequate BP & HR: stable & adequate Hydration State: stable & adequate Anesthetic Complications: no major complications apparent and Pt Satisfied with anesthetic care
[2020-07-30] MEDS: OXYTOCIN 20 UNITS in LACTATED RINGER'S 1,000 ML IV SCH (22:23)
[2020-07-30] MEDS: KETOROLAC 30 MG/ML VIAL IV PRN (22:28)
[2020-07-30] MEDS: NovoLIN-N (NPH) PER UNIT CHARGE SQ SCH (22:39)
[2020-07-30] MEDS: SIMETHICONE 80 MG CHEW PO SCH (22:41)
[2020-07-30] MEDS: DOCUSATE SODIUM 100 MG CAP PO SCH (22:42)
--- NOTE | 2020-07-31 01:36 | Operative Report (OR) ---
DATE OF OPERATION: 07/30/2020 PREOPERATIVE DIAGNOSES: 1. The patient is a 30-year-old G1, P0 at 39 weeks and 2 days of gestation with gestational diabetes, on insulin. 2. Day 3 of induction of labor. 3. Arrest of dilatation in active phase of labor. POSTOPERATIVE DIAGNOSES: 1. The patient is a 30-year-old G1, P0 at 39 weeks and 2 days of gestation with gestational diabetes, on insulin. 2. Day 3 of induction of labor. 3. Arrest of dilatation in active phase of labor. PROCEDURE: Primary low transverse with Pfannenstiel skin incision. SURGEON: Shavon Kahn MD TECHNICAL SOLUTIONS DIRECTOR: Helen Chew RN DRAINS: Avalos catheter drained 100 mL of clear urine. ANESTHESIA: Labor epidural. ANESTHESIOLOGIST: Dr. Ball. ESTIMATED BLOOD LOSS: 800 mL. COMPLICATIONS: None. FINDINGS: Baby was a viable female delivered at 2004 hours. Apgars were 9/9, weight was 3865 grams. Cephalic presentation. MATERNAL FINDINGS: Normal uterus, fallopian tubes, and ovaries. DESCRIPTION OF PROCEDURE: The patient was taken to the operating room where epidural anesthesia was found to be adequate. She was placed in a dorsal supine position with a leftward tilt. She was prepared and draped in usual sterile fashion. Time out was done. A Pfannenstiel skin incision was made, carried through the underlying layer of fascia with the Bovie. Fascia was incised in the midline and incision was extended laterally with the help of Diaz scissors. Lower aspect of the fascial incision was then grasped with 2 Gayathri clamps, elevated, underlying rectus muscles were dissected off sharply with Diaz scissors. Upper aspect of the fascial incision was then grasped with 2 Gayathri clamps, elevated, underlying rectus muscles were dissected off sharply with Diaz scissors. Rectus muscles were in the midline. Peritoneum was identified, entered bluntly with fingers. Peritoneal incision was extended superiorly and inferiorly with good visualization of the bladder. An Bhavik abdominal retractor was placed to provide abdominal wall retraction during surgery. The vesicouterine peritoneum was identified, grasped with pickups, entered sharply with Metzenbaum scissors. Bladder flap was created digitally and bladder blade was inserted. Lower uterine segment was incised in transverse fashion. Incision was extended laterally with the help of bandage scissors. Membranes were ruptured and clear fluid was obtained. Baby's head was brought to the incision, delivered without difficulty. Shoulders were delivered with minimal traction. Baby was vigorously moving and crying over mom's legs. Mouth and nose were suctioned. The baby was dried. Cord was clamped x2 and cut at 1-minute delay. Baby was handed off to the waiting pediatric team. Cord blood was obtained. Placenta was delivered manually as intact and complete. Uterus was exteriorized, cleared of all clots and debris. Uterine incision was repaired with 0 Vicryl in a running locked fashion and a second layer was placed to rembricate the first layer in a running fashion with 0 Vicryl. Excellent hemostasis was achieved. The cul-de-sac was irrigated with warm normal saline and suctioned. Normal peritoneum, ovaries, and fallopian tubes were visualized. The uterus was returned to the abdomen. The pelvis was irrigated with warm normal saline and suctioned, and the uterine incision was checked to be hemostatic again. Parietal peritoneum was reapproximated with 0 Vicryl in a running fashion and the muscles were brought together with the same suture in a running fashion. The muscular layer and the fascia were hemostatic and the rectus fascia was reapproximated with 0 Vicryl in a running fashion. Subcuticular fat tissue was brought together with 3-0 Vicryl in a running fashion. Skin was closed with 4-0 Monocryl in a subcuticular fashion. The patient tolerated the procedure well. Sponge, lap, needle count was correct x3. She was given 3 grams of cefazolin and 500 mg of azithromycin before surgery. She was taken to recovery room in stable condition. No complications happened and I was present during whole procedure. I attest to the content of the Intraoperative Record and any orders documented therein. Any exceptions are noted below. WESTLEY
[2020-07-31] MEDS: KETOROLAC 30 MG/ML VIAL IV PRN (04:23)
[2020-07-31 06:04] LABS: Eosinophils # (auto) 0.01 K/uL (0-0.5); Eosinophils % (auto) 0.1 %; Hematocrit (blood only) 30.5 % (37-47); Hemoglobin 10.1 g/dL (12.0-16.0); Immature Granulocytes # (auto) 0.07 K/uL (0.00-0.02); Immature Granulocytes % (auto) 0.5 %; Lymphocytes # (auto) 1.93 K/uL (1.2-3.4); Lymphocytes % (auto) 13.6 %; Mean Corpuscular Hemoglobin 29.7 pg (25-34); Mean Corpuscular Hgb Conc 33.1 g/dL (32-36); Mean Corpuscular Volume 89.7 fL (80-100); Mean Platelet Volume 11.2 fL (7.4-10.4); Monocytes # (auto) 0.94 K/uL (0.11-0.59); Monocytes % (auto) 6.6 %; Neutrophils % (auto) 79.2 %; Platelet Count 168 K/uL (130-400); RDW Coefficient of Variation 13.4 % (11.5-14.5); RDW Standard Deviation 43.9 fL (36.4-46.3); White Blood Count 14.15 K/uL (4.8-10.8)
[2020-07-31] MEDS: OXYTOCIN 20 UNITS in LACTATED RINGER'S 1,000 ML IV SCH (06:40)
[2020-07-31] MEDS ORDERED: INSULIN ASPART 100 UNITS/ML 3 ML PEN SC SCH (07:30)
[2020-07-31] MEDS ORDERED: FERROUS SULFATE 325 MG TAB PO SCH (08:00)
[2020-07-31] MEDS: PRENATAL VITAMIN 1 TAB PO SCH (08:52)
[2020-07-31] MEDS: AMOXICILLIN/CLAVULANATE 875 MG TAB PO SCH ×2 (08:52→17:56)
[2020-07-31] MEDS: DOCUSATE SODIUM 100 MG CAP PO SCH ×2 (08:52→20:54)
[2020-07-31] MEDS: SIMETHICONE 80 MG CHEW PO SCH ×4 (08:52→20:54)
--- NOTE | 2020-07-31 10:32 | Obstetrical Progress Note ---
Date of Service July 31, 2020 Assessment & Plan Admission and Anticipated Discharge Date Admission Date: July 28, 2020 Subjective Patient is seen and examined Feels well, no complaints Breast feeding her baby Pain is under control with meds No CP/ SOB/ Dizziness/ N&V/ VB/ Leg pain Not OOB yet Tolerating clears Flatus+ Explained about the surgery and findings Vital Signs Temp Pulse Pulse Resp BP BP Pulse Ox 07/31/20 06:23 16 92 07/31/20 05:00 16 97 07/31/20 04:15 36.9 C 71 16 121/79 98 07/31/20 03:00 16 97 07/31/20 02:00 16 96 07/31/20 01:00 16 95 07/31/20 00:00 17 96 07/30/20 23:50 37.0 C 75 16 121/76 95 07/30/20 23:05 89 95 07/30/20 23:00 88 93 07/30/20 22:59 90 94 07/30/20 22:55 85 94 07/30/20 22:54 87 94 07/30/20 22:52 87 121/62 07/30/20 22:50 87 95 07/30/20 22:47 91 H 94 07/30/20 22:45 84 95 07/30/20 22:42 89 94 07/30/20 22:40 95 H 93 07/30/20 22:37 91 H 122/72 07/30/20 22:36 92 H 94 07/30/20 22:35 101 H 92 07/30/20 22:31 82 94 Intake & Output 07/30/20 07/31/20 07/31/20 22:59 06:59 14:59 Intake Total 28.9 / 3821.099 239.333 / 3821.099 Output Total 700 / 1500 400 / 1500 Balance -671.1 / 2321.091989.333 / 232.09 Weight 107.955 kg Intake: IV 28.9 / 3821.099 2390.333 / 3821.099 Lactated Ringer's 1,000 ml @ 1000 / 2000.0 125 mls/hr IV .Q8H [facility] Rx#: [id number] Oxytocin 20 units In Lactated 1002.000 / 1002.000 Ringer's 1,000 ml @ 125 mls/hr IV .Q8H1M [facility] Rx#:[id number] Oxytocin 30 units In 500 ml @ 1 28.9 / 245.099 182.333 / 245.099 .2 UNITS/HR 20 mls/hr IV .Q24H PRN Rx#:[id number] Penicillin G Potassium 3 mu In 106 / 212 Dextrose 5% 100 ml @ 100 mls/hr IV Q4H PRN Rx#:[id number] ceFAZolin 3000MG 100 ml @ 130 100 / 100 mls/hr IV PREOP [facility] Rx#: [id number] Output: Urine Amount (Catheter) 700 / 1500 400 / 1500 Levine/Indwelling 700 / 1100 400 / 1100 Lab Results 07/28/20 07/28/20 07/28/20 Range/Units 10:06 10:06 10:13 WBC (4.8-10.8) K/uL RBC (4.2-5.4) M/uL Hgb (12.0-16.0) g/dL Hct (37-47) % MCV (80-100) fL MCH (25-34) pg MCHC (32-36) g/dL RDW Std Deviation (36.4-46.3) fL RDW Coeff of Tatiana (11.5-14.5) % Plt Count (130-400) K/uL MPV (7.4-10.4) fL Immature Gran % (Auto) % Neut % (Auto) % Lymph % (Auto) % [place] % (Auto) % Eos % (Auto) % Baso % (Auto) % Neut # (Auto) (1.4-6.5) K/uL Lymph # (Auto) (1.2-3.4) K/uL [place] # (Auto) (0.11-0.59) K/uL Eos # (Auto) (0-0.5) K/uL Baso # (Auto) (0-0.2) K/uL Immature Gran # (Auto) (0.00-0.02) K/uL Sodium 139 (136-145) mmol/L Potassium 3.6 (3.5-5.1) mmol/L Chloride 111 H (98-107) mmol/L Carbon Dioxide 19 L (21-32) mmol/L Anion Gap 9.0 (3-11) BUN 7 (7-18) mg/dl Creatinine 0.56 L (0.6-1.2) mg/dl Est Cr Clr Drug Dosing Not Reportable Est GFR ( Amer) 145.0 Est GFR (Non-Af Amer) 125.1 BUN/Creatinine Ratio 11.6 (10-20) Glucose 129 H (70-99) mg/dl Calcium 9.1 (8.5-10.1) mg/dl Total Bilirubin 0.2 (0.2-1) mg/dl AST 12 L (15-37) U/L ALT 16 (12-78) U/L Alkaline Phosphatase 143 H (45-117) U/L Total Protein 6.5 (6.4-8.2) gm/dl Albumin 2.6 L (3.4-5.0) gm/dl Globulin 3.9 (2.5-4.0) gm/dl Albumin/Globulin Ratio 0.7 L (0.9-2) COVID-19 Eval [facility] SARS-CoV-2, RNA, NAAT Cancelled Blood Type Antibody Screen 07/28/20 07/28/20 07/28/20 Range/Units 10:13 10:47 10:47 WBC 11.07 H (4.8-10.8) K/uL RBC 4.11 L (4.2-5.4) M/uL Hgb 12.3 (12.0-16.0) g/dL Hct 35.5 L (37-47) % MCV 86.4 (80-100) fL MCH 29.9 (25-34) pg MCHC 34.6 (32-36) g/dL RDW Std Deviation 42.0 (36.4-46.3) fL RDW Coeff of Tatiana 13.4 (11.5-14.5) % Plt Count 198 (130-400) K/uL MPV 11.0 H (7.4-10.4) fL Immature Gran % (Auto) % Neut % (Auto) % Lymph % (Auto) % [place] % (Auto) % Eos % (Auto) % Baso % (Auto) % Neut # (Auto) (1.4-6.5) K/uL Lymph # (Auto) (1.2-3.4) K/uL [place] # (Auto) (0.11-0.59) K/uL Eos # (Auto) (0-0.5) K/uL Baso # (Auto) (0-0.2) K/uL Immature Gran # (Auto) (0.00-0.02) K/uL Sodium (136-145) mmol/L Potassium (3.5-5.1) mmol/L Chloride (98-107) mmol/L Carbon Dioxide (21-32) mmol/L Anion Gap (3-11) BUN (7-18) mg/dl Creatinine (0.6-1.2) mg/dl Est Cr Clr Drug Dosing Est GFR ( Amer) Est GFR (Non-Af Amer) BUN/Creatinine Ratio (10-20) Glucose (70-99) mg/dl Calcium (8.5-10.1) mg/dl Total Bilirubin (0.2-1) mg/dl AST (15-37) U/L ALT (12-78) U/L Alkaline Phosphatase (45-117) U/L Total Protein (6.4-8.2) gm/dl Albumin (3.4-5.0) gm/dl Globulin (2.5-4.0) gm/dl Albumin/Globulin Ratio (0.9-2) COVID-19 Eval Order Covid19 [facility] SARS-CoV-2, RNA, NAAT NEGATIVE Blood Type Antibody Screen 07/30/20 07/30/20 07/31/20 Range/Units 19:26 19:26 05:33 WBC 13.99 H 14.15 H (4.8-10.8) K/uL RBC 4.14 L 3.40 L (4.2-5.4) M/uL Hgb 12.3 10.1 L (12.0-16.0) g/dL Hct 37.3 30.5 L (37-47) % MCV 90.1 89.7 (80-100) fL MCH 29.7 29.7 (25-34) pg MCHC 33.0 33.1 (32-36) g/dL RDW Std Deviation 44.8 43.9 (36.4-46.3) fL RDW Coeff of Tatiana 13.5 13.4 (11.5-14.5) % Plt Count 193 168 (130-400) K/uL MPV 11.2 H 11.2 H (7.4-10.4) fL Immature Gran % (Auto) 0.6 0.5 % Neut % (Auto) 81.1 79.2 % Lymph % (Auto) 12.9 13.6 % [place] % (Auto) 5.1 6.6 % Eos % (Auto) 0.2 0.1 % Baso % (Auto) 0.1 0.0 % Neut # (Auto) 11.36 H 11.20 H (1.4-6.5) K/uL Lymph # (Auto) 1.80 1.93 (1.2-3.4) K/uL [place] # (Auto) 0.71 H 0.94 H (0.11-0.59) K/uL Eos # (Auto) 0.03 0.01 (0-0.5) K/uL Baso # (Auto) 0.01 0.00 (0-0.2) K/uL Immature Gran # (Auto) 0.08 H 0.07 H (0.00-0.02) K/uL Sodium (136-145) mmol/L Potassium (3.5-5.1) mmol/L Chloride (98-107) mmol/L Carbon Dioxide (21-32) mmol/L Anion Gap (3-11) BUN (7-18) mg/dl Creatinine (0.6-1.2) mg/dl Est Cr Clr Drug Dosing Est GFR ( Amer) Est GFR (Non-Af Amer) BUN/Creatinine Ratio (10-20) Glucose (70-99) mg/dl Calcium (8.5-10.1) mg/dl Total Bilirubin (0.2-1) mg/dl AST (15-37) U/L ALT (12-78) U/L Alkaline Phosphatase (45-117) U/L Total Protein (6.4-8.2) gm/dl Albumin (3.4-5.0) gm/dl Globulin (2.5-4.0) gm/dl Albumin/Globulin Ratio (0.9-2) COVID-19 Eval Order SARS-CoV-2, RNA, NAAT Blood Type O Positive Antibody Screen NEGATIVE PE: General: Alert, orientedx3, NAD CVS: S1S2 RRR Lungs: CTAB Abd: soft, NT, ND, BS+, Fundus firm below U, Dressing C/D/I No VB Ext: NT, no edema, SCD's on AP: 30 yo female s/p P CS , pod#1 VSS Afebrile doing well Continue to routine postop care Encourage PO intake, advance diet, may ambulate D/C levine Results & Data ([facility]) Vital Signs (Past 12 Hours) Vital Signs Temp Pulse Pulse Resp BP BP Pulse Ox 07/31/20 06:23 16 92 07/31/20 05:00 16 97 07/31/20 04:15 36.9 C 71 16 121/79 98 07/31/20 03:00 16 97 07/31/20 02:00 16 96 07/31/20 01:00 16 95 07/31/20 00:00 17 96 07/30/20 23:50 37.0 C 75 16 121/76 95 07/30/20 23:05 89 95 07/30/20 23:00 88 93 07/30/20 22:59 90 94 07/30/20 22:55 85 94 07/30/20 22:54 87 94 07/30/20 22:52 87 121/62 07/30/20 22:50 87 95 07/30/20 22:47 91 H 94 07/30/20 22:45 84 95 07/30/20 22:42 89 94 07/30/20 22:40 95 H 93 07/30/20 22:37 91 H 122/72 07/30/20 22:36 92 H 94 07/30/20 22:35 101 H 92 07/30/20 22:31 82 94 07/30/20 22:30 78 95
[2020-07-31] MEDS ORDERED: PROMETHAZINE HCL 25 MG in SODIUM CHLORIDE 0.9% 50 ML IV PRN (14:19)
[2020-07-31] MEDS ORDERED: diphenhydrAMINE 50 MG/ML VIAL IV PRN (14:19)
[2020-07-31] MEDS ORDERED: KETOROLAC 30 MG/ML VIAL IV PRN (14:19)
[2020-07-31] MEDS ORDERED: MEPERIDINE HCL 50 MG/ML CARP IV PRN (14:19)
[2020-07-31] MEDS ORDERED: diphenhydrAMINE Capsule 25 MG CAP PO PRN (14:19)
[2020-07-31] MEDS: oxyCODONE/ACETAMINOPHEN 5mg/325mg TAB PO PRN ×3 (14:22→23:06)
[2020-07-31] MEDS: IBUPROFEN 600 MG TAB PO PRN ×3 (14:22→23:06)
[2020-07-31] MEDS ORDERED: bisacodyL 5 MG TABEC PO SCH (20:00)
[2020-07-31] MEDS ORDERED: METHYLERGONOVINE MALEATE 0.2 MG TAB PO SCH (22:00)
[2020-08-01] MEDS: oxyCODONE/ACETAMINOPHEN 5mg/325mg TAB PO PRN ×6 (02:44→23:58)
[2020-08-01] MEDS: IBUPROFEN 600 MG TAB PO PRN ×6 (02:45→23:58)
[2020-08-01 06:28] LABS: Hematocrit (blood only) 26.9 % (37-47); Hemoglobin 9.1 g/dL (12.0-16.0)
[2020-08-01] MEDS: FERROUS SULFATE 325 MG TAB PO SCH ×2 (07:46→20:47)
[2020-08-01] MEDS: DOCUSATE SODIUM 100 MG CAP PO SCH ×2 (07:46→20:47)
[2020-08-01] MEDS: SIMETHICONE 80 MG CHEW PO SCH ×4 (07:46→20:47)
[2020-08-01] MEDS: PRENATAL VITAMIN 1 TAB PO SCH (07:46)
[2020-08-01] MEDS: AMOXICILLIN/CLAVULANATE 875 MG TAB PO SCH ×2 (07:47→17:08)
--- NOTE | 2020-08-01 09:21 | Obstetrical Progress Note ---
Date of Service August 01, 2020 Assessment & Plan (1) delivery delivered: POD ##2 pt doing well' stable vitals anticipate dsich tomorrow Subjective Ambulation: ambulating normally Voiding: no voiding problems Passing Gas:: Yes Diet Tolerance:: clear liquids Lochia:: Small Feeding Type:: breast feeding Review of Systems All systems reviewed & are unremarkable except as noted in HPI & below Physical Exam Constitutional WD/WN, vitals as above well developed and well nourished Eyes PERRL, conjunctivae normal, anicteric sclerae ENMT external ear and nose normal, oropharynx normal Neck trachea midline, no thyromegaly Respiratory normal respiratory effort, lungs clear to auscultation Cardiovascular RRR, no murmur, no edema Chest (Breasts) normal inspection/palpation of breasts Gastrointestinal (Abdomen) normal bowel sounds, soft, nontender, no hepatosplenomegaly Musculoskeletal no cyanosis or clubbing, extremities motor strength 5/5 Skin no rashes, warm and dry + incision (Clean,dry and intact) Neurologic patellar DTR's 2+ bilat, sensation intact Psychiatric A+Ox3, euthymic affect Genitourinary normal external appearance Lymphatic no cervical or axillary lymphadenopathy Results & Data ([facility]) Vital Signs (Past 12 Hours) Vital Signs Temp Pulse Resp BP Pulse Ox 08/01/20 07:45 36.6 C 71 16 108/70 97 07/31/20 22:58 36.9 C 68 16 98/62 L 98
[2020-08-01] MEDS ORDERED: bisacodyL 10 MG SUPP PR PRN (20:47)
[2020-08-02] MEDS: oxyCODONE/ACETAMINOPHEN 5mg/325mg TAB PO PRN ×2 (03:34→08:33)
[2020-08-02] MEDS: IBUPROFEN 600 MG TAB PO PRN ×2 (03:34→08:34)
[2020-08-02] MEDS: DOCUSATE SODIUM 100 MG CAP PO SCH (08:33)
[2020-08-02] MEDS: PRENATAL VITAMIN 1 TAB PO SCH (08:33)
[2020-08-02] MEDS: FERROUS SULFATE 325 MG TAB PO SCH (08:33)
[2020-08-02] MEDS: SIMETHICONE 80 MG CHEW PO SCH (08:33)
[2020-08-02] MEDS: AMOXICILLIN/CLAVULANATE 875 MG TAB PO SCH (08:34)
--- NOTE | 2020-08-02 08:41 | Surgery Progress Note ---
Date of Service August 02, 2020 Assessment & Plan Admission and Anticipated Discharge Date Admission Date: July 28, 2020 Subjective POD#3 doing well passing gas tolerating diet out of bed plans to go home today Physical Exam Constitutional: WD/WN, vitals as above well developed and comfortable abdomen soft and non-tender incision c/d/i no edema neg Luz's for d/c home today Results & Data ([facility]) Vital Signs (Past 12 Hours) Vital Signs Temp Pulse Resp BP Pulse Ox 08/01/20 23:05 36.8 C 83 18 120/83 96 Laboratory Results 07/28/20 07/28/20 07/28/20 10:06 10:06 10:13 WBC RBC Hgb Hct MCV MCH MCHC RDW Std Deviation RDW Coeff of Tatiana Plt Count MPV Immature Gran % (Auto) Neut % (Auto) Lymph % (Auto) [place] % (Auto) Eos % (Auto) Baso % (Auto) Neut # (Auto) Lymph # (Auto) [place] # (Auto) Eos # (Auto) Baso # (Auto) Immature Gran # (Auto) Sodium 139 Potassium 3.6 Chloride 111 H Carbon Dioxide 19 L Anion Gap 9.0 BUN 7 Creatinine 0.56 L Est Cr Clr Drug Dosing Not Reportable Est GFR ( Amer) 145.0 Est GFR (Non-Af Amer) 125.1 BUN/Creatinine Ratio 11.6 Glucose 129 H Calcium 9.1 Total Bilirubin 0.2 AST 12 L ALT 16 Alkaline Phosphatase 143 H Total Protein 6.5 Albumin 2.6 L Globulin 3.9 Albumin/Globulin Ratio 0.7 L COVID-19 Eval Order Covid19 [facility] SARS-CoV-2, RNA, NAAT Cancelled Blood Type Antibody Screen 07/28/20 07/28/20 07/28/20 10:13 10:47 10:47 WBC 11.07 H RBC 4.11 L Hgb 12.3 Hct 35.5 L MCV 86.4 MCH 29.9 MCHC 34.6 RDW Std Deviation 42.0 RDW Coeff of Tatiana 13.4 Plt Count 198 MPV 11.0 H Immature Gran % (Auto) Neut % (Auto) Lymph % (Auto) [place] % (Auto) Eos % (Auto) Baso % (Auto) Neut # (Auto) Lymph # (Auto) [place] # (Auto) Eos # (Auto) Baso # (Auto) Immature Gran # (Auto) Sodium Potassium Chloride Carbon Dioxide Anion Gap BUN Creatinine Est Cr Clr Drug Dosing Est GFR ( Amer) Est GFR (Non-Af Amer) BUN/Creatinine Ratio Glucose Calcium Total Bilirubin AST ALT Alkaline Phosphatase Total Protein Albumin Globulin Albumin/Globulin Ratio COVID-19 Eval Order [facility] SARS-CoV-2, RNA, NAAT NEGATIVE Blood Type Antibody Screen 07/30/20 07/30/20 07/31/20 19:26 19:26 05:33 WBC 13.99 H 14.15 H RBC 4.14 L 3.40 L Hgb 12.3 10.1 L Hct 37.3 30.5 L MCV 90.1 89.7 MCH 29.7 29.7 MCHC 33.0 33.1 RDW Std Deviation 44.8 43.9 RDW Coeff of Tatiana 13.5 13.4 Plt Count 193 168 MPV 11.2 H 11.2 H Immature Gran % (Auto) 0.6 0.5 Neut % (Auto) 81.1 79.2 Lymph % (Auto) 12.9 13.6 [place] % (Auto) 5.1 6.6 Eos % (Auto) 0.2 0.1 Baso % (Auto) 0.1 0.0 Neut # (Auto) 11.36 H 11.20 H Lymph # (Auto) 1.80 1.93 [place] # (Auto) 0.71 H 0.94 H Eos # (Auto) 0.03 0.01 Baso # (Auto) 0.01 0.00 Immature Gran # (Auto) 0.08 H 0.07 H Sodium Potassium Chloride Carbon Dioxide Anion Gap BUN Creatinine Est Cr Clr Drug Dosing Est GFR ( Amer) Est GFR (Non-Af Amer) BUN/Creatinine Ratio Glucose Calcium Total Bilirubin AST ALT Alkaline Phosphatase Total Protein Albumin Globulin Albumin/Globulin Ratio COVID-19 Eval Order SARS-CoV-2, RNA, NAAT Blood Type O Positive Antibody Screen NEGATIVE 08/01/20 06:21 WBC RBC Hgb 9.1 L Hct 26.9 L MCV MCH MCHC RDW Std Deviation RDW Coeff of Tatiana Plt Count MPV Immature Gran % (Auto) Neut % (Auto) Lymph % (Auto) [place] % (Auto) Eos % (Auto) Baso % (Auto) Neut # (Auto) Lymph # (Auto) [place] # (Auto) Eos # (Auto) Baso # (Auto) Immature Gran # (Auto) Sodium Potassium Chloride Carbon Dioxide Anion Gap BUN Creatinine Est Cr Clr Drug Dosing Est GFR ( Amer) Est GFR (Non-Af Amer) BUN/Creatinine Ratio Glucose Calcium Total Bilirubin AST ALT Alkaline Phosphatase Total Protein Albumin Globulin Albumin/Globulin Ratio COVID-19 Eval Order SARS-CoV-2, RNA, NAAT Blood Type Antibody Screen
--- NOTE | 2020-08-08 10:11 | Discharge Summary (DS) ---
DETAILS OF ADMISSION: The patient is a 30-year-old G1, P0 at 39 weeks' gestation with gestational diabetes and on insulin. She was admitted on 07/28/2020 for induction of labor. She has received cervical ripening with Cervidil and multiple doses of Cytotec. Her cervix was unfavorable on , 07/29 and 07/30/2020. When I came on 07/30/2020, we discussed options of Pitocin and Avalos bulb and she agreed. Avalos bulb was placed and cervix with gentle traction and Pitocin was started. Avalos bulb came out by itself in the morning and in the afternoon, I checked her, she was 4 cm, 50%, -2 and artificial rupture of membranes was performed and clear fluid was obtained. Contractions were regular. Pitocin was increased. Her vital signs were stable, afebrile and heart rate was reassuring and in the afternoon, patient was checked again. There was no change in the cervix and IUPC was placed to monitor the contractions better. She had enough contractions between 200-320 [place] units in 10 minutes, which were adequate and she was continued with the Pitocin and she was rechecked in the evening and there was no change in her cervix. After discussion of either expectant management or primary , patient desired primary and did not want to continue with induction and more. Her vital signs were stable, afebrile. heart rate was reassuring. She signed an informed consent for a primary . She delivered a viable female . Apgars were 9/9, weight was 3865 grams and her surgery was uncomplicated. See dictated op note for details. On postop period, the patient was doing well. Vital signs stable, afebrile. Urine output was adequate. Her physical exam was unremarkable. Abdomen was soft, nontender. Incision was clean, dry and intact. Her postop H and H was 10.1/30.5. On postop day #2, the patient was doing well. Vital signs stable, afebrile. Physical exam was unremarkable. Bleeding was minimal. On postop day #3, the patient was doing well. Vital signs stable, afebrile, passing gas, tolerating a regular diet, ambulating. Incision was clean, dry and intact. Physical exam was unremarkable. Her repeat H and H was 9.1/26.9. She was discharged home by Dr. Carballo. Instructions were given when to call, prescriptions were written for pain. She is to be seen in office in a week.
== END 2020-08-02 11:45 | disposition home or self-care (01) | DRG 788 ==
LOC: 4S1 09:22 → 4S2 07-30 23:15

== ENCOUNTER 2022-04-17 05:27 | Inpatient (IN) ==
--- NOTE | 2022-04-11 09:07 | Anesthesiology Consultation ---
Date of Service April 11, 2022 Assessment & Plan Chart Review Chart Review: Acceptable Risk for Surgery and Patient NOT seen in Pre Admission Testing History Surgery Operation Date: 04/17/22 09:10 Proposed Procedures p Section in LD - Meliton Shabazz MD Height/Weight Height: 5 ft 7 in Weight: 111.13 kg Allergies Allergy/AdvReac Type Severity Reaction Status Date / Time codeine Allergy Intermediate RASH Verified 04/10/22 15:11 Medications Home Medications Medication Instructions Recorded Confirmed Last Taken [id number] 400 mcg-om3 35 mg-dha 25 2 tab PO QAM 06/24/19 04/10/22 07/20/20 07:30 mg-epa 5 mg-fish oil chewable tablet ( Gummy) insulin NPH isoph U-100 human 100 30 unit subcut HS 04/10/22 04/10/22 Unknown unit/mL (3 mL) subcutaneous pen (Novolin N FlexPen) Past Medical History Medical History GERD (gastroesophageal reflux disease) mild - no current issues. no current medications Gestational diabetes on insulin currently History of COVID-19 01/2022 -- tested positive at [facility] ~02/01/22. mild cold/flu like symptoms. no current issues. Obesity Spontaneous hx 2019 Past Family History Family History Other No family history of adverse response to anesthesia Past Surgical History Surgical History History of section History of colonoscopy History of dilatation and curettage History of esophagogastroduodenoscopy (EGD) History of tooth extraction wisdom Social History Smoking Status: Never smoker Do You Dip or Chew Tobacco: No Hx Alcohol Use: No Alcohol type: wine alcohol intake frequency: holidays/special occasions only Hx Substance Use: No substance use type: does not use
[2022-04-17] MEDS ORDERED: SODIUM CHLORIDE 0.9% 250 ML IV PRN (05:34)
[2022-04-17] MEDS ORDERED: CITRIC ACID/SODIUM CITRATE 15 ML UDC PO SCH (06:00)
[2022-04-17] MEDS ORDERED: LACTATED RINGER'S 1,000 ML IV SCH (06:00)
[2022-04-17] MEDS ORDERED: ceFAZolin 2,000 MG in SYRINGE 0 ML IV SCH (06:00)
[2022-04-17 06:02] LABS: Basophils # (auto) 0.04 K/uL (0-0.2); Basophils % (auto) 0.3 %; Eosinophils # (auto) 0.06 K/uL (0-0.50); Eosinophils % (auto) 0.5 %; Hematocrit (blood only) 29.4 % (34.1-44.9); Hemoglobin 9.5 g/dl (12.0-16.0); Immature Granulocytes # (auto) 0.13 K/uL (0.00-0.02); Lymphocytes # (auto) 3.11 K/uL (1.2-3.4); Lymphocytes % (auto) 23.4 %; Mean Corpuscular Hemoglobin 24.6 pg (25.0-34.0); Mean Corpuscular Hgb Conc 32.3 g/dL (32.0-36.0); Mean Corpuscular Volume 76.2 fL (80.0-100.0); Monocytes # (auto) 0.84 K/uL (0.24-0.82); Monocytes % (auto) 6.3 %; Neutrophils # (auto) 9.11 K/uL (1.4-6.5); Neutrophils % (auto) 68.5 %; Platelet Count 239 K/uL (130-400); Red Blood Count 3.86 M/uL (3.93-5.22); White Blood Count 13.29 K/ul (4.8-10.8)
[2022-04-17] MEDS ORDERED: MoRPHine SULFATE PF 1 MG/ML 10 ML AMP/VIAL ONE (07:13)
--- NOTE | 2022-04-17 07:32 | History & Physical Bridge Note ---
Date of Service April 17, 2022 History & Physical Bridge Note I have examined the patient, reviewed the History & Physical and in the interval since the performance of the History & Physical I have noted the following changes of clinical significance: no changes noted
[2022-04-17] MEDS ORDERED: PROMETHAZINE HCL 12.5 MG in SODIUM CHLORIDE 0.9% 50 ML IV PRN (07:47)
[2022-04-17] MEDS ORDERED: MoRPHine SULFATE 2 MG/ML CARP IV PRN (07:47)
[2022-04-17] MEDS ORDERED: ONDANSETRON INJ 2 MG/ML 2 ML VIAL IV PRN (07:47)
[2022-04-17] MEDS ORDERED: NALOXONE HCL 1 MG in SODIUM CHLORIDE 0.9% 1000ML 1,000 ML IV PRN (07:47)
[2022-04-17] MEDS ORDERED: KETOROLAC 30 MG/ML VIAL IV PRN (07:47)
[2022-04-17] MEDS ORDERED: NALBUPHINE HCL INJ 10 MG/ML AMP IV PRN (07:47)
[2022-04-17] MEDS ORDERED: MoRPHine SULFATE PF 1 MG/ML 10 ML AMP/VIAL INT SPINAL ONE (07:47)
[2022-04-17] MEDS ORDERED: diphenhydrAMINE 50 MG/ML VIAL IV PRN (07:47)
[2022-04-17] MEDS ORDERED: LACTATED RINGER'S 500 ML IV PRN (07:47)
[2022-04-17] MEDS ORDERED: NALOXONE HCL 0.4 MG/1 ML VIAL/CARP IV PRN (07:47)
[2022-04-17] MEDS ORDERED: ePHEDrine sulfate 50 MG/ML AMP IV PRN (07:47)
[2022-04-17] MEDS ORDERED: NALOXONE HCL 0.08 MG in SYRINGE 1.8 ML IV PRN (07:47)
[2022-04-17] MEDS ORDERED: SODIUM CHLORIDE 0.9% 1000ML 1,000 ML IV SCH (08:00)
[2022-04-17] MEDS ORDERED: DC INTRASPINAL MORPHINE SCH (08:00)
[2022-04-17] MEDS ORDERED: NO NARCOTICS OR SEDATIVES SCH (08:00)
[2022-04-17] MEDS ORDERED: PHENYLEPHRINE 100MCG/ML 5ML SYR ONE (08:11)
[2022-04-17] MEDS ORDERED: OXYTOCIN 10 UNITS/ML 10ML VIAL ONE (08:11)
[2022-04-17] MEDS ORDERED: PROPOFOL IV EMULSION 10 MG/ML 20 ML VIAL IV ONE (08:11)
[2022-04-17] MEDS ORDERED: ONDANSETRON INJ 2 MG/ML 2 ML VIAL ONE (08:11)
[2022-04-17] MEDS ORDERED: METOCLOPRAMIDE HCL INJ 5 MG/ML 2 ML VIAL ONE (08:11)
[2022-04-17] MEDS ORDERED: ePHEDrine sulfate 50 MG/ML SYR ONE (08:11)
[2022-04-17] MEDS ORDERED: OXYTOCIN 10 UNITS/ML VIAL ONE (08:24)
[2022-04-17] MEDS ORDERED: OXYTOCIN 10 UNITS/ML 10ML VIAL IM ONE (08:26)
[2022-04-17] MEDS ORDERED: miSOPROStoL 200 MCG TAB ONE (08:35)
[2022-04-17] MEDS ORDERED: miSOPROStoL 200 MCG TAB PR ONE (09:05)
[2022-04-17] MEDS ORDERED: MAGNESIUM HYDROXIDE SUSP 30 ML UDC PO PRN (09:11)
[2022-04-17] MEDS ORDERED: DIPHTHERIA/TETANUS/PERTUSSIS 0.5mL SYR/VIAL (Age 7+yrs) IM ONE (09:11)
[2022-04-17] MEDS ORDERED: BENZOCAINE 20% AER SPR 82.5 GM CAN EXT PRN (09:11)
[2022-04-17] MEDS ORDERED: SENNA 8.6 MG TAB PO PRN (09:11)
[2022-04-17] MEDS ORDERED: HYDROCORTISONE ACETATE 25 MG SUPP PR PRN (09:11)
[2022-04-17] MEDS: OXYTOCIN 20 UNITS in LACTATED RINGER'S 1,000 ML IV SCH ×2 (11:36→20:24)
--- NOTE | 2022-04-17 13:00 | Operative Report (OR) ---
DATE OF PROCEDURE: 04/17/2022 INDICATION FOR SURGERY: This is a 31-year-old G2, P1, prior section, who wished to have rep eat . PREOPERATIVE DIAGNOSES: Prior section, at term, wishes to have repeat se ction. POSTOPERATIVE DIAGNOSES: Prior section, at term, wishes to have repeat s ection. SURGEON: Meliton Shabazz MD. ASSISTANTS: Kim Garsia and Ana Luisa Kendall. ATTESTATION FOR ASSISTANTS: Assistants were necessary to help with retraction and manipulation in or angelina to provide for safe surgery. PROCEDURE: Repeat section. ANESTHESIA: Spinal. ATTENDING FOR ANESTHESIA: Dr. Thomas. DRAINS: None. ESTIMATED BLOOD LOSS: 500 mL. INTRAVENOUS FLUIDS: 1000 mL. URINE OUTPUT: 100 mL of clear urine at the end of the procedure. SPECIMENS: Cord blood, cord gases and placenta. INTRAOPERATIVE COMPLICATIONS: None. PATIENT CONDITION: Stable. DISPOSITION: Postanesthesia care unit. ATTESTATION: I performed the entire procedure. FINDINGS: Normal female escutcheon. Abdominal findings showed normal uterus, tubes and ovary. Very little abdominal adhesions from prior surgery. was in cephalic presentation with on e loose nuchal cord. Rest of the abdominopelvic exam is unremarkable. DESCRIPTION OF PROCEDURE: The patient was taken to the operating room where she was prepped and drap ed in normal sterile fashion in dorsal lithotomy position. A Pfannenstiel incision was made through the old scar, carried down to the fascia. Fascia was incised in the midline and extended laterally o n both sides. Fascia was sharply dissected off the rectus abdominis muscle superiorly and inferiorly . Peritoneum was identified and entered sharply. Once inside the abdomen, findings are as dictated above. Bhavik retractor was placed in the abdomen to help with retraction during the surgery. Vesicouterine peritoneum was sharply dissected off the lower segment of the uterus. Transverse incision was made and the was delivered first by reducing the nuchal cord. Cord was clamped and cut after 1 min gustavo and handed over to the waiting pediatric team. 's information is in the pediatric record. Cord blood and cord gases were obtained and placenta was manually removed. Uterus was exteriorized and cleared of all clots and debris. Uterus was closed in 2 layers with Vicryl suture. Good hemosta sis was obtained. Copious amount of irrigation was used to irrigate the abdomen. Uterus was returned into the abdomina l cavity. Peritoneum was closed with plain suture in a running fashion. The rectus abdominis muscle s showed good hemostasis. The fascia was closed in a running fashion with Vicryl stitch. Subcutaneo us space was closed with plain suture and the skin was closed with 4-0 Monocryl. All instruments were removed from the abdomen and accounted for x2 including sponges, needles, and re tractors. The patient is sent to recovery in stable condition. Job ID: [id number]
--- NOTE | 2022-04-17 15:20 | Anesthesiology Progress Note ---
Date of Service April 17, 2022 Anesthesia Post Procedure Vital Signs Vital Signs: Temp Pulse Pulse Resp BP BP Pulse Ox 04/17/22 13:30 18 100 04/17/22 13:30 36.8 C 87 18 118/72 100 04/17/22 12:30 18 99 04/17/22 11:30 18 99 04/17/22 11:30 36.8 C 88 18 126/70 99 04/17/22 10:30 18 04/17/22 10:00 18 04/17/22 09:50 18 04/17/22 09:30 18 04/17/22 09:40 18 04/17/22 09:20 18 04/17/22 09:10 18 04/17/22 09:00 36.6 C 20 04/17/22 05:45 37.2 C 18 04/17/22 11:07 80 115/58 L 04/17/22 11:05 77 96 04/17/22 11:00 98 H 97 04/17/22 10:55 87 97 04/17/22 07:10 18 04/17/22 07:10 18 04/17/22 10:50 86 95 04/17/22 10:48 90 109/56 L 04/17/22 10:45 83 97 04/17/22 10:40 92 H 95 04/17/22 10:38 74 109/59 L 04/17/22 10:35 88 96 04/17/22 10:30 83 97 04/17/22 10:28 92 H 146/65 H 04/17/22 10:25 89 97 04/17/22 10:20 96 H 99 04/17/22 10:18 88 125/59 L 04/17/22 10:15 94 H 95 04/17/22 10:10 89 98 04/17/22 10:08 93 H 122/56 L 04/17/22 10:05 87 97 04/17/22 10:00 96 H 96 04/17/22 09:58 100 H 129/73 04/17/22 09:55 84 96 04/17/22 09:50 85 96 04/17/22 09:48 85 119/64 04/17/22 09:45 97 H 96 04/17/22 09:40 94 H 95 04/17/22 09:38 92 H 118/50 L 04/17/22 09:35 90 95 04/17/22 09:30 96 H 97 04/17/22 09:28 99 H 128/58 L 04/17/22 09:25 95 H 97 04/17/22 09:20 97 H 96 04/17/22 09:15 86 95 04/17/22 09:10 84 95 04/17/22 09:09 90 92 04/17/22 09:08 81 105/55 L 04/17/22 09:05 85 95 04/17/22 09:00 105 H 94 04/17/22 08:59 86 94 04/17/22 08:57 94 H 124/60 04/17/22 06:04 97 H 105/52 L O2 Del Method 04/17/22 13:30 04/17/22 13:30 Room Air 04/17/22 12:30 04/17/22 11:30 04/17/22 11:30 Room Air 04/17/22 10:30 04/17/22 10:00 04/17/22 09:50 04/17/22 09:30 04/17/22 09:40 04/17/22 09:20 04/17/22 09:10 04/17/22 09:00 04/17/22 05:45 04/17/22 11:07 04/17/22 11:05 04/17/22 11:00 04/17/22 10:55 04/17/22 07:10 04/17/22 07:10 04/17/22 10:50 04/17/22 10:48 04/17/22 10:45 04/17/22 10:40 04/17/22 10:38 04/17/22 10:35 04/17/22 10:30 04/17/22 10:28 04/17/22 10:25 04/17/22 10:20 04/17/22 10:18 04/17/22 10:15 04/17/22 10:10 04/17/22 10:08 04/17/22 10:05 04/17/22 10:00 04/17/22 09:58 04/17/22 09:55 04/17/22 09:50 04/17/22 09:48 04/17/22 09:45 04/17/22 09:40 04/17/22 09:38 04/17/22 09:35 04/17/22 09:30 04/17/22 09:28 04/17/22 09:25 04/17/22 09:20 04/17/22 09:15 04/17/22 09:10 04/17/22 09:09 04/17/22 09:08 04/17/22 09:05 04/17/22 09:00 04/17/22 08:59 04/17/22 08:57 04/17/22 06:04 Pain Intensity Lower Abdomen: Pain Intensity: 2 Transfer of Care Handoff Completed per policy Notes Mental Status: alert / awake / arousable Patient Amnestic to Procedure: Yes Nausea / Vomiting: adequately controlled Pain: adequately controlled Airway Patency, RR, SpO2: stable & adequate BP & HR: stable & adequate Hydration State: stable & adequate Neuraxial Anesthesia: was administered and sensory block is resolving Anesthetic Complications: no major complications apparent
[2022-04-17] MEDS: SIMETHICONE 80 MG CHEW PO SCH ×3 (17:13→21:07)
[2022-04-17] MEDS: DOCUSATE SODIUM 100 MG CAP PO SCH (21:07)
[2022-04-17] MEDS: LACTATED RINGER'S 1,000 ML IV SCH (21:16)
[2022-04-18] MEDS ORDERED: diphenhydrAMINE Capsule 25 MG CAP PO PRN (01:48)
[2022-04-18] MEDS ORDERED: PROMETHAZINE HCL 25 MG in SODIUM CHLORIDE 0.9% 50 ML IV PRN (01:48)
[2022-04-18] MEDS ORDERED: ONDANSETRON INJ 2 MG/ML 2 ML VIAL IV PRN (01:48)
[2022-04-18] MEDS ORDERED: diphenhydrAMINE 50 MG/ML VIAL IV PRN (01:48)
[2022-04-18] MEDS: OXYTOCIN 20 UNITS in LACTATED RINGER'S 1,000 ML IV SCH (03:07)
[2022-04-18] MEDS: LACTATED RINGER'S 1,000 ML IV SCH (03:07)
[2022-04-18] MEDS: oxyCODONE/ACETAMINOPHEN 5mg/325mg TAB PO PRN ×5 (04:14→22:10)
[2022-04-18] MEDS: IBUPROFEN 600 MG TAB PO PRN ×5 (04:15→22:10)
[2022-04-18 07:25] LABS: Basophils # (auto) 0.02 K/uL (0-0.2); Basophils % (auto) 0.2 %; Eosinophils # (auto) 0.07 K/uL (0-0.50); Eosinophils % (auto) 0.6 %; Hematocrit (blood only) 25.8 % (34.1-44.9); Hemoglobin 8.4 g/dl (12.0-16.0); Immature Granulocytes # (auto) 0.12 K/uL (0.00-0.02); Immature Granulocytes % (auto) 0.9 %; Lymphocytes # (auto) 1.01 K/uL (1.2-3.4); Lymphocytes % (auto) 7.9 %; Mean Corpuscular Hemoglobin 24.5 pg (25.0-34.0); Mean Corpuscular Hgb Conc 32.6 g/dL (32.0-36.0); Mean Corpuscular Volume 75.2 fL (80.0-100.0); Mean Platelet Volume 11.4 fL (9.4-12.3); Monocytes # (auto) 0.72 K/uL (0.24-0.82); Monocytes % (auto) 5.7 %; Neutrophils # (auto) 10.77 K/uL (1.4-6.5); Neutrophils % (auto) 84.7 %; Platelet Count 189 K/uL (130-400); RDW Coefficient of Variation 15.2 % (11.5-14.5); RDW Standard Deviation 41.6 fL (36.4-46.3); Red Blood Count 3.43 M/uL (3.93-5.22); White Blood Count 12.71 K/ul (4.8-10.8)
[2022-04-18] MEDS: FERROUS SULFATE 325 MG TAB PO SCH (07:53)
[2022-04-18] MEDS: PRENATAL VITAMIN 1 TAB PO SCH (07:53)
[2022-04-18] MEDS: SIMETHICONE 80 MG CHEW PO SCH ×4 (07:53→19:48)
[2022-04-18] MEDS: DOCUSATE SODIUM 100 MG CAP PO SCH ×2 (07:53→19:48)
--- NOTE | 2022-04-18 08:11 | Obstetrical Progress Note ---
Date of Service April 18, 2022 Assessment & Plan (1) delivery delivered: POD #1 pt doing well continue day 31 care Results & Data ([facility]) Vital Signs (Past 12 Hours) Vital Signs Temp Pulse Resp BP Pulse Ox O2 Del Method 04/18/22 03:10 36.7 C 79 18 99/59 L 91 Room Air 04/18/22 03:00 18 92 04/18/22 01:00 18 92 04/18/22 00:00 18 95 04/17/22 23:03 18 93 04/17/22 23:03 37.1 C 80 18 101/62 93 Room Air 04/17/22 22:00 18 95 04/17/22 21:00 18 95
[2022-04-18] MEDS ORDERED: bisacodyL 5 MG TABEC PO SCH (20:00)
[2022-04-19] MEDS: IBUPROFEN 600 MG TAB PO PRN ×5 (01:50→20:35)
[2022-04-19] MEDS: oxyCODONE/ACETAMINOPHEN 5mg/325mg TAB PO PRN ×6 (01:51→22:01)
[2022-04-19 06:43] LABS: Hematocrit (blood only) 25.2 % (37.0-47.0)
[2022-04-19] MEDS: SIMETHICONE 80 MG CHEW PO SCH ×4 (08:12→20:36)
[2022-04-19] MEDS: PRENATAL VITAMIN 1 TAB PO SCH (08:13)
[2022-04-19] MEDS: DOCUSATE SODIUM 100 MG CAP PO SCH ×2 (08:13→20:36)
[2022-04-19] MEDS: FERROUS SULFATE 325 MG TAB PO SCH ×3 (08:19→20:36)
[2022-04-19] MEDS ORDERED: IRON SUCROSE 200 MG in 0.9 % SODIUM CHLORIDE 100 ML IV ONE (08:30)
--- NOTE | 2022-04-19 08:45 | Obstetrical Progress Note ---
Date of Service April 19, 2022 Assessment & Plan Admission and Anticipated Discharge Date Admission Date: April 17, 2022 Subjective Patient is seen and examined. She feels well, no complaints. Pain is under control with oral meds. Ambulating without dizziness Voiding without difficulty Tolerating regular diet with out N&V Flatus + BM neg Bleeding is minimal No fever/ chills/ CP/ SOB/ N&V/ Leg pain Breast feeding and supplementing with formula. Vital Signs Temp Pulse Resp BP Pulse Ox O2 Del Method 04/18/22 23:30 36.5 C 79 18 115/73 96 Room Air 04/18/22 19:45 36.8 C 83 18 111/69 96 Room Air 04/18/22 16:50 37.0 C 73 16 111/68 96 Room Air Lab Results 04/17/22 04/17/22 04/17/22 Range/Units 05:38 05:48 05:48 WBC 13.29 H (4.8-10.8) K/ul RBC 3.86 L (3.93-5.22) M/uL Hgb 9.5 L (12.0-16.0) g/dl Hct 29.4 L (34.1-44.9) % MCV 76.2 L (80.0-100.0) fL MCH 24.6 L (25.0-34.0) pg MCHC 32.3 (32.0-36.0) g/dL RDW Std Deviation 41.0 (36.4-46.3) fL RDW Coeff of Tatiana 15.0 H (11.5-14.5) % Plt Count 239 (130-400) K/uL MPV 11.0 (9.4-12.3) fL Immature Gran % (Auto) 1.0 % Neut % (Auto) 68.5 % Lymph % (Auto) 23.4 % [place] % (Auto) 6.3 % Eos % (Auto) 0.5 % Baso % (Auto) 0.3 % Neut # (Auto) 9.11 H (1.4-6.5) K/uL Lymph # (Auto) 3.11 (1.2-3.4) K/uL [place] # (Auto) 0.84 H (0.24-0.82) K/uL Eos # (Auto) 0.06 (0-0.50) K/uL Baso # (Auto) 0.04 (0-0.2) K/uL Immature Gran # (Auto) 0.13 H (0.00-0.02) K/uL POC Glucose 99 (70-99) mg/dl Blood Type O Positive Antibody Screen NEGATIVE Crossmatch See Detail 04/18/22 04/19/22 Range/Units 06:41 05:52 WBC 12.71 H (4.8-10.8) K/ul RBC 3.43 L (3.93-5.22) M/uL Hgb 8.4 L 8.0 L (12.0-16.0) g/dl Hct 25.8 L 25.2 L (34.1-44.9) % MCV 75.2 L (80.0-100.0) fL MCH 24.5 L (25.0-34.0) pg MCHC 32.6 (32.0-36.0) g/dL RDW Std Deviation 41.6 (36.4-46.3) fL RDW Coeff of Tatiana 15.2 H (11.5-14.5) % Plt Count 189 (130-400) K/uL MPV 11.4 (9.4-12.3) fL Immature Gran % (Auto) 0.9 % Neut % (Auto) 84.7 % Lymph % (Auto) 7.9 % [place] % (Auto) 5.7 % Eos % (Auto) 0.6 % Baso % (Auto) 0.2 % Neut # (Auto) 10.77 H (1.4-6.5) K/uL Lymph # (Auto) 1.01 L (1.2-3.4) K/uL [place] # (Auto) 0.72 (0.24-0.82) K/uL Eos # (Auto) 0.07 (0-0.50) K/uL Baso # (Auto) 0.02 (0-0.2) K/uL Immature Gran # (Auto) 0.12 H (0.00-0.02) K/uL POC Glucose (70-99) mg/dl Blood Type Antibody Screen Crossmatch PE: General: Alert, orientedx3, NAD CVS: S1S2 RRR Lungs; CTAB Abd: soft, NT, ND, BS+, fundus firm, below Umbilicus Incision/ Dressing: Clean, dry, intact Perineum intact, Lochia rubra minimal Ext; NT, no edema AP: 31 yo s/p C Section, pod# 2 VSS Afebrile doing well Anemic, asymptomatic, plan IV iron once and continue with PO bid Continue routine postop care Encourage ambulation, PO intake All questions were answered CBC in am D/C home tomorrow Results & Data ([facility]) Vital Signs (Past 12 Hours) Vital Signs Temp Pulse Resp BP Pulse Ox O2 Del Method 04/18/22 23:30 36.5 C 79 18 115/73 96 Room Air
[2022-04-19] MEDS ORDERED: bisacodyL 10 MG SUPP PR PRN (09:11)
[2022-04-20] MEDS: oxyCODONE/ACETAMINOPHEN 5mg/325mg TAB PO PRN ×2 (03:58→08:22)
[2022-04-20 06:26] LABS: Basophils # (auto) 0.04 K/uL (0-0.2); Basophils % (auto) 0.5 %; Eosinophils # (auto) 0.19 K/uL (0-0.50); Eosinophils % (auto) 2.3 %; Hematocrit (blood only) 25.7 % (37.0-47.0); Hemoglobin 8.1 g/dl (12.0-16.0); Immature Granulocytes # (auto) 0.11 K/uL (0.01-0.20); Immature Granulocytes % (auto) 1.3 %; Lymphocytes # (auto) 2.86 K/uL (1.2-3.4); Lymphocytes % (auto) 34.5 %; Mean Corpuscular Hemoglobin 24.1 pg (25.0-34.0); Mean Corpuscular Hgb Conc 31.5 g/dL (32.0-36.0); Mean Corpuscular Volume 76.5 fL (80.0-100.0); Mean Platelet Volume 10.9 fL (9.4-12.4); Monocytes # (auto) 0.49 K/uL (0.11-0.59); Monocytes % (auto) 5.9 %; Neutrophils # (auto) 4.59 K/uL (1.40-6.50); Neutrophils % (auto) 55.5 %; Platelet Count 219 K/uL (130-400); RDW Coefficient of Variation 15.6 % (11.5-14.5); RDW Standard Deviation 42.7 fL (36.4-46.3); Red Blood Count 3.36 M/uL (4.20-5.40); White Blood Count 8.28 K/ul (4.8-10.8)
[2022-04-20] MEDS: SIMETHICONE 80 MG CHEW PO SCH (08:21)
[2022-04-20] MEDS: IBUPROFEN 600 MG TAB PO PRN (08:21)
[2022-04-20] MEDS: DOCUSATE SODIUM 100 MG CAP PO SCH (08:21)
[2022-04-20] MEDS: FERROUS SULFATE 325 MG TAB PO SCH (08:21)
[2022-04-20] MEDS: PRENATAL VITAMIN 1 TAB PO SCH (08:21)
--- NOTE | 2022-04-20 09:56 | Obstetrical Progress Note ---
Date of Service April 20, 2022 Assessment & Plan (1) delivery delivered: POD #2 Pt doing well d/c home with instrcutions Results & Data ([facility]) Vital Signs (Past 12 Hours) Vital Signs Temp Pulse Resp BP Pulse Ox O2 Del Method 04/20/22 07:30 36.7 C 76 20 117/80 98 Room Air 04/20/22 00:00 36.6 C 71 18 117/76 97 Room Air
--- NOTE | 2022-04-20 23:45 | Discharge Summary (DS) ---
DATE OF ADMISSION: 04/17/2022 DATE OF DISCHARGE: 04/20/2022 CHIEF COMPLAINT: 1. at term. 2. Previous section, wishes to have repeat . HISTORY OF PRESENT ILLNESS: This is a 31-year-old G3, P2, due date 04/23/2022. The patient's pregna ncy has been unremarkable except for gestational diabetes, which was controlled with insulin. The pa tient had a prior section and wished to have a repeat . On 04/17/2022, the patient presented to [facility] at 39+ weeks and underwent repeat section. [facility] ls of surgery and the 's information is on the respective records. Surgery otherwise was unrem arkable. The patient met all milestones. On 04/18/2022, the patient was able to ambulate, tolerate p.o. food and medication and diet. The patient is being discharged home today on 04/20/2022 in [facility] condition. PAST MEDICAL HISTORY: 1. Gastroesophageal reflux disease. 2. Gestational hypertension. 3. History of COVID-19. 4. Obesity. 5. Spontaneous . PAST SURGICAL HISTORY: History of section, colonoscopy, dilation and curettage, EGD and den sofie procedure. SOCIAL HISTORY: The patient lives with spouse and one child. Denies tobacco, drug or alcohol use. FAMILY HISTORY: Noncontributory. ALLERGIES: THE PATIENT IS ALLERGIC TO CODEINE. REVIEW OF SYSTEMS: Negative except as dictated in the HPI. PHYSICAL EXAMINATION: VITAL SIGNS: On 04/20/2022, blood pressure ____/70, pulse 76, respirations 20, temperature 36.7. HEART: S1 and S2, regular rhythm and rate. LUNGS: Clear to auscultation bilaterally. ABDOMEN: Nontender, nondistended. Positive bowel sounds. The patient has DARNELL dressing. It is dry and intact. EXTREMITIES: No cyanosis, clubbing or edema. LABORATORY DATA: Labs on 04/19/2022 showed hemoglobin of 8.1, hematocrit of 25.7, and platelets of 2 19. CONDITION ON DISCHARGE: Stable. OPERATION: Repeat section. DISCHARGE DIAGNOSIS: Postoperative after repeat section. PLAN ON DISCHARGE: The patient is discharged home with instructions regarding activity, diet, follow up appointment and medications. Job ID: [id number]
== END 2022-04-20 11:37 | disposition home or self-care (01) | DRG 788 ==
LOC: 4S1 05:27 → EDSTATUS 09:10 → 4E2 11:30
DX: Z88.5 Allergy status to narcotic agent; Z37.0 Single live birth; O34.211 Maternal care for low transverse scar from previous cesarean delivery; Z86.16 Personal history of COVID-19; Z3A.39 39 weeks gestation of pregnancy; O24.414 Gestational diabetes mellitus in pregnancy, insulin controlled

== ENCOUNTER 2022-04-26 00:09 | Observation (INO) ==
[2022-04-26] MEDS ORDERED: LABETALOL HCL IV 5 MG/ML 20ML IV STA (00:27)
[2022-04-26] MEDS ORDERED: MAG SULFATE 4GM BOLUS FROM BAG IV ONE (00:27)
[2022-04-26] MEDS ORDERED: oxyCODONE/ACETAMINOPHEN 5mg/325mg TAB PO PRN (00:30)
[2022-04-26] MEDS ORDERED: NIFEdipine EXTENDED REL 30 MG TABCR PO STA ×2 (00:36→07:10)
--- NOTE | 2022-04-26 00:36 | History & Physical Report ---
Date of Service April 26, 2022 Assessment & Plan (1) Pre-eclampsia: Plan: Admit, routine labs, pain control for pain meds as needed Start magnesium sulfate 4 g an hour, continue for at least 24 hours at 2 g an hour SCDs, Avalos IV labetalol 20 mg magnesium sulfate stat Will treat if systolic blood pressures are greater than or equal to 160 and/or diastolic blood pressure greater than or equal to 110 We will start patient on nifedipine 30 mg extended release for baseline control Patient and partner updated at the bedside about diagnosis of preeclampsia and the need for magnesium sulfate for seizure prophylaxis. Continue pumping, medications currently safe in breast-feeding mother (2) delivery delivered: Plan: Continue routine PP care Admission and Anticipated Discharge Date Admission Date: April 26, 2022 History of Present Illness Chief Complaint: Elevated D dimer Primary Care Provider: Gopi Medina MD Patient is a 31 year old G3 now P2012 s/p repeat CD on 04/17/2022 (POD 8) who presented to [facility] ED c/o SOB. Patient explains she has been having this wheeze for approximately the last week, has been worse in the night. Was seen at clinic on the for incision check and was told to follow-up with primary care doctor if it continued to worsen. She then presented to her PCP who did additional work-up, and was called at 8:00 at night that her D-dimer was high. And she was told to present immediately to the closest emergency department. She is joined in the room with male partner. Patient is currently breast-fee ding/pump feeding, and has her portable pump with her at this time complicated by GDM requiring insulin. Called by ER staff that CT PA was negative for PE, but BP down in ER was SBP 180-200 (with proteinuria) and was going to be given 1gr Mag bolus and started on labetalol Patient denies any issues with the incision, has been using her Percocet as needed, last dose was the night before Allergies Allergy/AdvReac Type Severity Reaction Status Date / Time codeine Allergy Intermediate RASH Verified 04/17/22 05:44 Home Medications Medication Instructions Recorded Confirmed Type [id number] 400 mcg-om3 35 mg-dha 25 2 tab PO QAM 06/24/19 04/25/22 History mg-epa 5 mg-fish oil chewable tablet ( Gummy) docusate sodium 100 mg capsule 100 mg PO DAILY@08,21 #30 caps 04/20/22 04/25/22 Rx ferrous sulfate 325 mg (65 mg 325 mg PO BID #60 tabs 04/20/22 04/25/22 Rx iron) tablet,delayed release ibuprofen 600 mg tablet 600 mg PO Q4H #30 tabs 04/20/22 04/25/22 Rx oxycodone-acetaminophen 5 mg-325 1 - 2 tab PO Q4H #30 tabs 04/20/22 04/25/22 Rx mg tablet (Percocet) Patient History Medical History Elective induction of labor planned Encounter for pre-operative examination GERD (gastroesophageal reflux disease) mild - no current issues. no current medications Gestational diabetes on insulin currently Gestational diabetes requiring insulin History of COVID-19 01/2022 -- tested positive at [facility] ~02/01/22. mild cold/flu like symptoms. no current issues. 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 No signs of infection Musculoskeletal: no cyanosis or clubbing, extremities motor strength 5/5 Neurologic: patellar DTR's 2+ bilat, sensation intact Lymphatic: +2 pitting edema Results & Data ([facility]) Vital Signs (Past 12 Hours) Vital Signs Pulse BP Pulse Ox 04/26/22 00:28 84 94 04/26/22 00:24 75 97 04/26/22 00:19 86 95 04/26/22 00:18 75 177/97 H Laboratory Results [facility] labs: Normal, trace protein Vital Signs 04/26/22 00:18 04/26/22 00:19 04/26/22 00:24 04/26/22 00:28 04/26/22 00:29 04/26/22 00:34 04/26/22 00:35 04/26/22 00:36 BP 177/97 H 131/72 Pulse 75 86 75 84 74 82 77 73 Pulse Oximetry (%) 95 97 94 96 95 94 (1) Pre-eclampsia Trimester: unspecified trimester Qualified Code(s): O14.90 - Unspecified pre- eclampsia, unspecified trimester
[2022-04-26] MEDS: LACTATED RINGER'S 1,000 ML IV PRN ×2 (01:04→18:55)
[2022-04-26] MEDS: MAGNESIUM SULFATE / WTR 40 GM/1,000 ML BAG IV SCH ×2 (01:06→18:54)
[2022-04-26] MEDS: IBUPROFEN 600 MG TAB PO PRN ×4 (02:05→20:55)
[2022-04-26 02:25] LABS: Total Protein Urine Random < 4.0 mg/dl (0-11.9)
[2022-04-26 02:45] LABS: Creatinine Urine Random 35.8 mg/dl
[2022-04-26] MEDS ORDERED: SODIUM CHLORIDE 0.9% 250 ML IV PRN (08:00)
[2022-04-26 08:24] LABS: Hematocrit (blood only) 30.7 % (37.0-47.0); Hemoglobin 9.6 g/dl (12.0-16.0); Mean Corpuscular Hemoglobin 24.4 pg (25.0-34.0); Mean Corpuscular Hgb Conc 31.3 g/dL (32.0-36.0); Mean Corpuscular Volume 78.1 fL (80.0-100.0); Mean Platelet Volume 9.9 fL (9.4-12.4); Platelet Count 309 K/uL (130-400); RDW Coefficient of Variation 16.8 % (11.5-14.5); RDW Standard Deviation 45.6 fL (36.4-46.3); Red Blood Count 3.93 M/uL (4.20-5.40); White Blood Count 7.68 K/ul (4.8-10.8)
[2022-04-26] MEDS: FERROUS SULFATE 325 MG TAB PO SCH ×2 (09:14→22:16)
[2022-04-26] MEDS: DOCUSATE SODIUM 100 MG CAP PO SCH ×2 (09:14→20:55)
--- NOTE | 2022-04-26 09:52 | Obstetrical Progress Note ---
Date of Service April 26, 2022 Assessment & Plan Admission and Anticipated Discharge Date Admission Date: April 26, 2022 Subjective Patient is seen and examined. She feels better, still has wheezing in her lungs. Using inspirex. Pain is under control with oral meds. Tolerating regular diet with out N&V Flatus + BM + Bleeding has stopped for the last 2 days is minimal No fever/ chills/ CP/ SOB/ N&V/ Leg pain Breast feeding and pumping here without problems. Baby is coming this morning Vital Signs Temp Pulse Resp BP Pulse Ox O2 Del Method 04/26/22 09:15 18 04/26/22 08:14 16 04/26/22 07:15 36.6 C 18 04/26/22 07:15 Room Air 04/26/22 06:00 18 04/26/22 05:00 16 04/26/22 04:00 18 04/26/22 03:00 18 04/26/22 01:30 37.0 C 18 95 04/26/22 01:30 18 04/26/22 01:22 37.0 C 77 18 131/72 93 04/26/22 09:45 95 H 92 04/26/22 09:40 93 H 94 04/26/22 09:35 93 H 96 04/26/22 09:30 87 93 04/26/22 09:25 83 96 04/26/22 09:20 83 95 04/26/22 09:15 85 93 04/26/22 09:10 83 94 04/26/22 09:08 81 118/69 04/26/22 09:05 80 95 04/26/22 09:00 90 92 04/26/22 08:55 89 93 04/26/22 08:50 84 95 04/26/22 08:45 85 94 04/26/22 08:40 89 95 04/26/22 08:35 87 95 04/26/22 08:34 89 127/72 04/26/22 08:30 91 H 95 04/26/22 08:25 95 H 94 04/26/22 08:20 95 H 93 04/26/22 08:15 88 92 04/26/22 08:10 88 93 04/26/22 08:08 86 123/71 04/26/22 08:05 87 92 04/26/22 08:00 87 92 04/26/22 07:55 89 93 04/26/22 07:50 88 94 04/26/22 07:45 92 H 94 04/26/22 07:40 84 94 04/26/22 07:35 82 92 04/26/22 07:30 81 93 04/26/22 07:25 82 92 04/26/22 07:20 91 H 95 04/26/22 07:15 88 94 04/26/22 07:10 86 95 04/26/22 07:08 83 116/59 L 04/26/22 07:05 87 95 04/26/22 07:00 69 92 04/26/22 06:58 67 91 04/26/22 06:55 80 92 04/26/22 06:50 68 92 04/26/22 06:45 68 92 04/26/22 06:42 68 91 04/26/22 06:40 70 92 04/26/22 06:36 70 90 04/26/22 06:35 71 92 04/26/22 06:30 73 92 04/26/22 06:25 71 92 04/26/22 06:20 74 93 04/26/22 06:15 73 93 04/26/22 06:10 80 92 04/26/22 06:08 80 109/56 L 04/26/22 06:05 77 93 04/26/22 06:00 77 92 04/26/22 05:59 80 90 04/26/22 05:55 80 94 04/26/22 05:50 93 04/26/22 05:50 83 04/26/22 05:50 81 91 04/26/22 05:45 79 97 04/26/22 05:40 78 94 04/26/22 05:35 71 95 04/26/22 05:30 67 94 04/26/22 05:25 66 95 04/26/22 05:20 64 94 04/26/22 05:15 71 95 04/26/22 05:10 66 95 04/26/22 05:08 72 120/66 04/26/22 05:05 66 93 04/26/22 05:00 66 94 04/26/22 04:55 66 93 04/26/22 04:50 67 93 04/26/22 04:45 64 93 04/26/22 04:40 67 93 04/26/22 04:35 73 92 04/26/22 04:30 81 92 04/26/22 04:25 85 94 04/26/22 04:20 90 94 04/26/22 04:15 84 93 04/26/22 04:10 75 94 04/26/22 04:08 81 135/74 04/26/22 04:05 77 94 04/26/22 04:00 92 H 95 04/26/22 03:55 66 94 04/26/22 03:50 72 93 04/26/22 03:45 73 94 04/26/22 03:40 70 94 04/26/22 03:35 74 96 04/26/22 03:30 64 95 04/26/22 03:25 69 96 04/26/22 03:20 101 H 95 04/26/22 03:15 66 94 04/26/22 03:10 64 95 04/26/22 03:08 62 132/71 04/26/22 03:05 70 95 04/26/22 03:00 66 95 04/26/22 02:55 62 95 04/26/22 02:50 63 95 04/26/22 02:45 69 98 04/26/22 02:40 72 95 04/26/22 02:35 77 98 04/26/22 02:30 70 97 04/26/22 02:25 72 97 04/26/22 02:20 71 96 04/26/22 02:15 71 96 04/26/22 02:10 77 96 04/26/22 02:07 73 145/86 H 04/26/22 02:05 76 96 04/26/22 02:00 76 93 04/26/22 01:55 75 96 04/26/22 01:52 78 152/92 H 04/26/22 01:50 80 95 04/26/22 01:45 74 97 04/26/22 01:39 81 94 04/26/22 01:36 73 137/80 02 01:34 77 92 04/26/22 01:29 79 92 04/26/22 01:24 76 94 04/26/22 01:21 77 139/74 04/26/22 01:19 75 93 04/26/22 01:14 79 93 04/26/22 01:09 78 97 04/26/22 01:07 76 134/65 94 04/26/22 01:04 76 97 04/26/22 01:02 83 94 04/26/22 00:59 77 96 04/26/22 00:54 74 95 04/26/22 00:55 75 94 04/26/22 00:49 79 96 04/26/22 00:44 72 95 04/26/22 00:20 18 04/26/22 00:20 37.0 C 18 04/26/22 00:39 76 95 04/26/22 00:36 73 94 04/26/22 00:34 82 95 04/26/22 00:35 77 131/72 04/26/22 00:29 74 96 04/26/22 00:28 84 94 04/26/22 00:24 75 97 04/26/22 00:19 86 95 04/26/22 00:18 75 177/97 H PE: General: Alert, orientedx3, NAD CVS: S1S2 RRR Lungs; crackles Abd: soft, NT, ND, BS+, fundus firm, below Umbilicus Incision: Clean, dry, intact, healing well Perineum intact, Lochia rubra minimal Ext; NT, no edema, SCD's on AP: 31 yo s/p RC Section on 04/17 , admitted for SOB, Elevated D Dimer, HT, normal CXR and CT scan, negative resp viral study VSS Afebrile doing well BP's stable On IV Magnesium Labs normal Anemic, start on iron Continue to monitor closely Results & Data ([facility]) Vital Signs (Past 12 Hours) Vital Signs Temp Pulse Resp BP Pulse Ox O2 Del Method 04/26/22 09:15 18 04/26/22 08:14 16 04/26/22 07:15 36.6 C 18 04/26/22 07:15 Room Air 04/26/22 06:00 18 04/26/22 05:00 16 04/26/22 04:00 18 04/26/22 03:00 18 04/26/22 01:30 37.0 C 18 95 04/26/22 01:30 18 04/26/22 01:22 37.0 C 77 18 131/72 93 04/26/22 09:45 95 H 92 04/26/22 09:40 93 H 94 04/26/22 09:35 93 H 96 04/26/22 09:30 87 93 04/26/22 09:25 83 96 04/26/22 09:20 83 95 04/26/22 09:15 85 93 04/26/22 09:10 83 94 04/26/22 09:08 81 118/69 04/26/22 09:05 80 95 04/26/22 09:00 90 92 04/26/22 08:55 89 93 04/26/22 08:50 84 95 04/26/22 08:45 85 94 04/26/22 08:40 89 95 04/26/22 08:35 87 95 04/26/22 08:34 89 127/72 04/26/22 08:30 91 H 95 04/26/22 08:25 95 H 94 04/26/22 08:20 95 H 93 04/26/22 08:15 88 92 04/26/22 08:10 88 93 04/26/22 08:08 86 123/71 04/26/22 08:05 87 92 04/26/22 08:00 87 92 04/26/22 07:55 89 93 04/26/22 07:50 88 94 04/26/22 07:45 92 H 94 04/26/22 07:40 84 94 04/26/22 07:35 82 92 04/26/22 07:30 81 93 04/26/22 07:25 82 92 04/26/22 07:20 91 H 95 04/26/22 07:15 88 94 04/26/22 07:10 86 95 04/26/22 07:08 83 116/59 L 04/26/22 07:05 87 95 04/26/22 07:00 69 92 04/26/22 06:58 67 91 04/26/22 06:55 80 92 04/26/22 06:50 68 92 04/26/22 06:45 68 92 04/26/22 06:42 68 91 04/26/22 06:40 70 92 04/26/22 06:36 70 90 04/26/22 06:35 71 92 04/26/22 06:30 73 92 04/26/22 06:25 71 92 04/26/22 06:20 74 93 04/26/22 06:15 73 93 04/26/22 06:10 80 92 04/26/22 06:08 80 109/56 L 04/26/22 06:05 77 93 04/26/22 06:00 77 92 04/26/22 05:59 80 90 04/26/22 05:55 80 94 04/26/22 05:50 93 04/26/22 05:50 83 04/26/22 05:50 81 91 04/26/22 05:45 79 97 04/26/22 05:40 78 94 04/26/22 05:35 71 95 04/26/22 05:30 67 94 04/26/22 05:25 66 95 04/26/22 05:20 64 94 04/26/22 05:15 71 95 04/26/22 05:10 66 95 04/26/22 05:08 72 120/66 04/26/22 05:05 66 93 04/26/22 05:00 66 94 04/26/22 04:55 66 93 04/26/22 04:50 67 93 04/26/22 04:45 64 93 04/26/22 04:40 67 93 04/26/22 04:35 73 92 04/26/22 04:30 81 92 04/26/22 04:25 85 94 04/26/22 04:20 90 94 04/26/22 04:15 84 93 04/26/22 04:10 75 94 04/26/22 04:08 81 135/74 04/26/22 04:05 77 94 04/26/22 04:00 92 H 95 04/26/22 03:55 66 94 04/26/22 03:50 72 93 04/26/22 03:45 73 94 04/26/22 03:40 70 94 04/26/22 03:35 74 96 04/26/22 03:30 64 95 04/26/22 03:25 69 96 04/26/22 03:20 101 H 95 04/26/22 03:15 66 94 04/26/22 03:10 64 95 04/26/22 03:08 62 132/71 04/26/22 03:05 70 95 04/26/22 03:00 66 95 04/26/22 02:55 62 95 04/26/22 02:50 63 95 04/26/22 02:45 69 98 04/26/22 02:40 72 95 04/26/22 02:35 77 98 0202/23 02:30 70 97 04/26/22 02:25 72 97 04/26/22 02:20 71 96 04/26/22 02:15 71 96 04/26/22 02:10 77 96 04/26/22 02:07 73 145/86 H 04/26/22 02:05 76 96 04/26/22 02:00 76 93 04/26/22 01:55 75 96 04/26/22 01:52 78 152/92 H 04/26/22 01:50 80 95 04/26/22 01:45 74 97 04/26/22 01:39 81 94 04/26/22 01:36 73 137/80 04/26/22 01:34 77 92 04/26/22 01:29 79 92 04/26/22 01:24 76 94 04/26/22 01:21 77 139/74 04/26/22 01:19 75 93 04/26/22 01:14 79 93 04/26/22 01:09 78 97 04/26/22 01:07 76 134/65 94 04/26/22 01:04 76 97 04/26/22 01:02 83 94 04/26/22 00:59 77 96 04/26/22 00:54 74 95 04/26/22 00:55 75 94 04/26/22 00:49 79 96 04/26/22 00:44 72 95 04/26/22 00:20 18 04/26/22 00:20 37.0 C 18 04/26/22 00:39 76 95 04/26/22 00:36 73 94 04/26/22 00:34 82 95 04/26/22 00:35 77 131/72 04/26/22 00:29 74 96 04/26/22 00:28 84 94 04/26/22 00:24 75 97 04/26/22 00:19 86 95 04/26/22 00:18 75 177/97 H
[2022-04-26] MEDS: PRENATAL VITAMIN 1 TAB PO SCH (10:36)
[2022-04-26 11:41] LABS: Albumin Globulin Ratio 1.3 (0.9-2); Albumin Level 3.4 gm/dl (3.4-5.0); BUN Creatinine Ratio 16.1 (10-20); Bilirubin,Total 0.3 mg/dl (0.2-1.0); Calcium 8.2 mg/dl (8.5-10.1); Creatinine Clr Calc Pharmacy 164.5 ml/min; Est GFR (African American) 139.3 ml/min; Est GFR (Non-African American) 120.2 ml/min; Globulin 2.7 gm/dl (2.5-4.0); Potassium 3.8 mmol/L (3.5-5.1); Total Protein 6.1 gm/dl (6.0-8.3)
[2022-04-26] MEDS ORDERED: ALBUTEROL 0.083% NEBU SOLN 3 ML VIAL NEB STA (23:02)
[2022-04-26] MEDS ORDERED: ALBUTEROL 0.083% NEBU SOLN 3 ML VIAL NEB PRN (23:07)
[2022-04-27] MEDS: IBUPROFEN 600 MG TAB PO PRN (02:01)
[2022-04-27 09:49] LABS: Hematocrit (blood only) 33.2 % (37.0-47.0); Hemoglobin 10.2 g/dl (12.0-16.0); Mean Corpuscular Hemoglobin 24.6 pg (25.0-34.0); Mean Corpuscular Hgb Conc 30.7 g/dL (32.0-36.0); Mean Platelet Volume 9.6 fL (9.4-12.4); Platelet Count 310 K/uL (130-400); RDW Coefficient of Variation 17.3 % (11.5-14.5); RDW Standard Deviation 48.9 fL (36.4-46.3); Red Blood Count 4.15 M/uL (4.20-5.40)
--- NOTE | 2022-04-27 10:31 | XRay Report ---
XR chest 2V PA/lateral CLINICAL HISTORY: S/P c/section 04/17/22. Wheezing. Dyspnea on exertion. COMPARISON STUDY: Chest CT April 25, 2022 FINDINGS: Lung volumes are normal. Lungs are clear. There is no pneumothorax or pleural effusion. Car diac size is normal. Mediastinal contours are normal. There is no evidence for pulmonary edema. IMPRESSION: No acute cardiopulmonary findings. ACT 112: Negative or not required by law. Electronically signed by: uAstin Arita M.D. 04/27/2022 10:29 AM
[2022-04-27 11:15] LABS: Albumin Globulin Ratio 1.3 (0.9-2); Albumin Level 3.4 gm/dl (3.4-5.0); BUN Creatinine Ratio 21.9 (10-20); Bilirubin,Total 0.3 mg/dl (0.2-1.0); Calcium 7.5 mg/dl (8.5-10.1); Creatinine Clr Calc Pharmacy 139.7 ml/min; Est GFR (African American) 127.2 ml/min; Est GFR (Non-African American) 109.7 ml/min; Globulin 2.7 gm/dl (2.5-4.0); Potassium 3.5 mmol/L (3.5-5.1); Total Protein 6.1 gm/dl (6.0-8.3)
--- NOTE | 2022-04-27 11:56 | Obstetrical Progress Note ---
Date of Service April 27, 2022 Assessment & Plan (1) Shortness of breath: Plan discharge home continue [facility] f/u in 1 week in office Subjective Ambulation: ambulating normally Voiding: no voiding problems Passing Gas:: Yes Diet Tolerance:: regular diet Lochia:: Small Feeding Type:: breast feeding Current Pain Level(1-10): 0 doing well. no SOB or dizziness. Physical Exam Constitutional WD/WN, vitals as above Musculoskeletal no cyanosis or clubbing, extremities motor strength 5/5 Extremities: extremities normal to inspection Skin no rashes, warm and dry Neurologic patellar DTR's 2+ bilat, sensation intact Psychiatric A+Ox3, euthymic affect Results & Data ([facility]) Vital Signs (Past 12 Hours) Vital Signs Temp Pulse Pulse Resp BP BP Pulse Ox 04/27/22 08:30 04/27/22 08:30 36.8 C 18 96 04/27/22 04:00 18 04/27/22 04:00 36.8 C 81 18 123/76 96 04/27/22 08:45 74 124/77 04/27/22 02:00 81 123/76 O2 Del Method 04/27/22 08:30 Room Air 04/27/22 08:30 Room Air 04/27/22 04:00 04/27/22 04:00 Room Air 04/27/22 08:45 04/27/22 02:00 Laboratory Results 04/26/22 04/26/22 04/26/22 01:58 08:07 08:07 WBC 7.68 RBC 3.93 L Hgb 9.6 L Hct 30.7 L MCV 78.1 L MCH 24.4 L MCHC 31.3 L RDW Std Deviation 45.6 RDW Coeff of Tatiana 16.8 H Plt Count 309 MPV 9.9 Sodium 140 Potassium 3.8 Chloride 109 H Carbon Dioxide 24 Anion Gap 7 BUN 10 Creatinine 0.62 Est Cr Clr Drug Dosing 164.5 Est GFR ( Amer) 139.3 Est GFR (Non-Af Amer) 120.2 BUN/Creatinine Ratio 16.1 Glucose 85 Calcium 8.2 L Total Bilirubin 0.3 AST 21 ALT 30 Alkaline Phosphatase 60 Total Protein 6.1 Albumin 3.4 Globulin 2.7 Albumin/Globulin Ratio 1.3 Ur Random Creatinine 35.8 U Random Total Protein < 4.0 Protein/Creatinin Ratio TNP Blood Type Antibody Screen Crossmatch 04/26/22 04/27/22 04/27/22 08:07 09:30 09:30 WBC 6.50 RBC 4.15 L Hgb 10.2 L Hct 33.2 L MCV 80.0 MCH 24.6 L MCHC 30.7 L RDW Std Deviation 48.9 H RDW Coeff of Tatiana 17.3 H Plt Count 310 MPV 9.6 Sodium 140 Potassium 3.5 Chloride 109 H Carbon Dioxide 22 Anion Gap 9 BUN 16 Creatinine 0.73 Est Cr Clr Drug Dosing 139.7 Est GFR ( Amer) 127.2 Est GFR (Non-Af Amer) 109.7 BUN/Creatinine Ratio 21.9 H Glucose 109 H Calcium 7.5 L Total Bilirubin 0.3 AST 15 ALT 24 Alkaline Phosphatase 61 Total Protein 6.1 Albumin 3.4 Globulin 2.7 Albumin/Globulin Ratio 1.3 Ur Random Creatinine U Random Total Protein Protein/Creatinin Ratio Blood Type O Positive Antibody Screen NEGATIVE Crossmatch See Detail Diagnostic Findings CXR is normal today
[2022-04-27] MEDS: PRENATAL VITAMIN 1 TAB PO SCH (12:15)
[2022-04-27] MEDS: DOCUSATE SODIUM 100 MG CAP PO SCH (12:15)
[2022-04-27] MEDS: FERROUS SULFATE 325 MG TAB PO SCH (12:15)
--- NOTE | 2022-05-03 10:53 | Discharge Summary (DS) ---
REASON FOR ADMISSION AND HOSPITAL COURSE: The patient presented on 04/25/2022 to the emergency room. She is status post section on 04/17/2022, presents with acute onset of difficulty breathin g with some wheezing and coughing. She was seen by her primary physician doing some lab studies incl uding a D-dimer, which was significantly elevated. Because of this, she was sent to the ER. She had a spiral CT done in the ER, which was negative. She was admitted. Her blood pressure was elevated. She was started on magnesium sulfate for 24 hours. Subsequently, her breathing was better. Chest x-ray was negative. She was stable, tolerating a diet and was discharged on 04/27/2022 in stable con dition. Home going instructions were given. CONDITION ON DISCHARGE: Stable. Regular diet on discharge. Follow up will be in the office in 1 week with patient to return if any s ymptoms of shortness of breath. Job ID: [id number]
== END 2022-04-27 12:50 | disposition home or self-care (01) ==
LOC: 4S1 00:09 → INTOOBSV 00:09